=== PATIENT | male | born 1955 | race Hispanic/Latino ===

== ENCOUNTER 2016-08-19 04:33 | Inpatient (IN) | payer MEDICARE, OTHER ==
[2016-08-19] MEDS ORDERED: Sodium Chloride 0.9% 1,000 ML IV STA ×4 (04:48→13:40)
--- NOTE | 2016-08-19 04:50 | ED PDOC ---
Arrival/HPI <Randy Mckeon - Last Filed: 08/19/16 11:48> - General Historian: Patient - History of Present Illness Time/Duration: Other (few hours) Symptom Onset: Gradual Symptom Course: Unchanged Severity Level: Severe Activities at Onset: Rest Context: Home <Teja Camilo - Last Filed: 08/20/16 06:21> - General Time Seen by Provider: 08/19/16 04:35 - History of Present Illness Narrative History of Present Illness (Text): 08/19/16 04:45 Kar Ramírez is a 60 year old male, whose past medical history includes SBO with bowel ischemia, CAD, CHF, hypertension, asthma, COPD, diabetes, hyperlipidemia, and obstructive sleep apnea, who presents to the ED complaining of diffuse abdominal pain for the past few hours. Patient also complaining of associated nausea, vomiting, and diarrhea. Patient was recent hospitalized on 07/26/2016 for SBO with ischemic bowel and underwent an emergency laparotomy and right hemicolectomy with anastomosis. Patient denies any fever, chills, chest pain, shortness of breath, urinary symptoms, back pain, neck pain, headache, dizziness , or any other complaints. PMD: Dr. Mikki Mccormack (Teja Camilo) Past Medical History - Provider Review Nursing Documentation Reviewed: Yes - Infectious Disease Hx of Infectious Diseases: None - Tetanus Immunization Tetanus Immunization: Unknown - Cardiac Hx Cardiac Disorders: Yes (CAD; Mitral Valve Prolapse) Hx Congestive Heart Failure: Yes Hx Hypertension: Yes - Pulmonary Hx Chronic Obstructive Pulmonary Disease (COPD): Yes (Asthma; Bronchitis; Sleep Apnea) - Neurological Hx Neurological Disorder: No (Pt states he is forgetful) - HEENT Hx HEENT Disorder: No - Renal Hx Renal Disorder: No Other/Comment: Pt stated he takes Lisinopril for his kidneys; Pt stated he has no kidney problems. - Endocrine/Metabolic Hx Diabetes Mellitus Type 2: Yes - Hematological/Oncological Hx Blood Disorders: No - Integumentary Hx Dermatological Disorder: No - Musculoskeletal/Rheumatological Hx Falls: Yes - Gastrointestinal Hx Gastrointestinal Disorders: No - Genitourinary/Gynecological Hx Genitourinary Disorders: No - Psychiatric Hx Psychophysiologic Disorder: Yes Hx Anxiety: Yes Hx Bipolar Disorder: Yes Hx Depression: Yes Hx Physical Abuse: No Hx Schizophrenia: Yes (schizoaffective disorder) Hx Substance Use: No Other/Comment: SCHIZOAFFECTIVE DISORDER - Surgical History Hx Valve Replacement: Yes - Anesthesia Hx Anesthesia: No - Suicidal Assessment Feels Threatened In Home Enviroment: No <TonTeja - Last Filed: 08/20/16 06:21> Family/Social History - Physician Review Nursing Documentation Reviewed: Yes Family/Social History: No Known Family HX Smoking Status: Heavy Smoker > 10 Cigarettes Daily Hx Alcohol Use: No Hx Substance Use: No Hx Substance Use Treatment: No <TonTeja - Last Filed: 08/20/16 06:21> Allergies/Home Meds <Randy Mckeon Josefina - Last Filed: 08/19/16 11:48> <TonTeja - Last Filed: 08/20/16 06:21> Allergies/Adverse Reactions: Allergies haloperidol [From Haldol] Allergy (Verified 08/19/16 04:45) ANAPHYLAXIS haloperidol lactate [From Haldol] Allergy (Verified 08/19/16 04:45) ANAPHYLAXIS oxycodone Allergy (Verified 08/19/16 04:45) VOMITING Home Medications: Home Meds Medication Instructions Recorded Confirmed Buspar 15 mg PO QID 10/11/15 07/31/16 buPROPion SR [Wellbutrin SR 150 MG] 150 mg PO DAILY 10/11/15 07/31/16 Metoprolol Tartrate [Lopressor] 25 mg PO BID 10/28/15 07/31/16 Lorazepam [Ativan] 0.5 mg PO BID 07/31/16 07/31/16 Temazepam [Restoril] 15 mg PO HS 07/31/16 07/31/16 Review of Systems - Review of Systems Constitutional: Normal. absent: Fevers Eyes: Normal ENT: Normal Respiratory: Normal. absent: SOB, Cough Cardiovascular: Normal. absent: Chest Pain Gastrointestinal: Abdominal Pain, Diarrhea, Nausea, Vomiting Genitourinary Male: Normal. absent: Dysuria, Frequency, Hematuria, Urinary Output Changes Musculoskeletal: Normal. absent: Back Pain Skin: Normal. absent: Rash Neurological: Normal. absent: Headache, Dizziness Endocrine: Normal Hemo/Lymphatic: Normal Psychiatric: Normal <TonTeja - Last Filed: 08/20/16 06:21> Physical Exam Vital Signs Reviewed: Yes Temperature: Afebrile Blood Pressure: Normal Pulse: Regular Respiratory Rate: Normal Appearance: Positive for: Well-Appearing, Non-Toxic, Comfortable Pain Distress: None Mental Status: Positive for: Alert and Oriented X 3 - Systems Exam Head: Present: Atraumatic, Normocephalic Pupils: Present: PERRL Extroacular Muscles: Present: EOMI Conjunctiva: Present: Normal Mouth: Present: Moist Mucous Membranes Neck: Present: Normal Range of Motion Respiratory/Chest: Present: Clear to Auscultation, Good Air Exchange. No: Respiratory Distress, Accessory Muscle Use Cardiovascular: Present: Regular Rate and Rhythm, Normal S1, S2. No: Murmurs Abdomen: Present: Tenderness (Mild tenderness to lower abdomen), Normal Bowel Sounds, Scars (Sutured midline surgical scar with small 1.0 cm superficial skin separation to suture line). No: Distention, Peritoneal Signs Back: Present: Normal Inspection Upper Extremity: Present: Normal Inspection. No: Cyanosis, Edema Lower Extremity: Present: Normal Inspection. No: Edema Neurological: Present: GCS=15, CN II-XII Intact, Speech Normal, Motor Func Grossly Intact, Normal Sensory Function Skin: Present: Warm, Dry, Normal Color. No: Rashes Psychiatric: Present: Alert, Oriented x 3, Normal Insight, Normal Concentration <Teja Camilo - Last Filed: 08/20/16 06:21> Vital Signs Temp Pulse Resp BP Pulse Ox 08/19/16 09:31 98 F 78 18 138/78 98 08/19/16 08:00 66 18 149/85 99 08/19/16 06:43 75 18 139/82 100 08/19/16 04:46 97.6 F 89 18 133/47 L 100 08/19/16 04:45 97.6 F 82 21 133/47 L 100 Medical Decision Making <Randy Mckeon - Last Filed: 08/19/16 11:48> - Critical Care Critical Care Minutes: 30 minutes - Lab Interpretations I have reviewed the lab results: Yes - EKG Interpretation Interpreted by ED Physician: Yes Type: 12 lead EKG <Teja Camilo - Last Filed: 08/20/16 06:21> ED Course and Treatment: 08/19/16 10:30 - Dr. Joy, Radiologist gave me a prelim report on the CT findings. I reported them immediately to Dr. Satnam Hirsch. Patient was already admitted and I had no involvement in this case. (Randy Mckeon) 08/19/16 04:45 Impression: 60 year old male complaining of diffuse abdominal pain with nausea, vomiting, and diarrhea for past few hours. Plan: -- Labs, lipase, VBG, blood cultures -- Urinalysis, urine cultures -- IV fluids -- Zofran -- Dilaudid -- Reassess and disposition Prior Visits: Notes and results from previous visits were reviewed. On 07/26/2016, pt was seen in the ED for RLQ pain with nausea and vomiting. Pt was admitted to CCU and underwent an emergent exploratory laparotomy and right hemicolectomy and anastomosis for SBO with ischemic bowel. Progress Notes: 08/19/16 05:[address] Hidalgo, salesperson surgical appliances, to ED to evaluate pt. Dr. Hidalgo is familiar with pt, as he assisted Dr. Hirsch on previous surgery. 08/19/16 05:35 Reviewed labs, lactate: 3.9, WBC: 19.4. Code Sepsis called. CT Abdomen and Pelvis, EKG, Chest X-ray, Urinalysis, urine cultures, and blood cultures to follow. 08/19/16 06:04 Case discussed in full with Dr. Ronel Hirsch including abnormal lab results, pts. condition and my concern given recent past surgical hx. for ischemic bowel/ hemicolectomy performed by him.Ct Scan Abdomen/Pelvis with oral/IV contrast requested.States he will come and evaluate pt.IV fluids/antibiotics were administered to patient. 08/19/16 06:[address] Hutchinson, forming department supervisor, who is aware and agrees with plan.Pt.does not meet criteria for ICU at this time as pt. is hemodynamically stable with continued normal vital signs.Serial abdominal exams unremarkable/no acute abdomen. CT scan pending. 08/19/16 06:10 Reviewed EKG, NSR at 84 bpm. Occasional PVC. RBBB. Lateral T wave changes. 08/19/16 06:[address] Mccormack, who is aware and agrees with plan.Agrees Dr. Garcia and Dr. Hirsch on consult. (Teja Camilo) - Lab Interpretations Microbiology Results: Microbiology Results 08/19/16 05:15 Blood Blood Culture - Preliminary NO GROWTH AFTER 24 HOURS 08/19/16 05:00 Blood Blood Culture - Preliminary NO GROWTH AFTER 24 HOURS Lab Results: 08/19/16 05:00 08/19/16 05:00 Lab Results 08/19/16 05:00: WBC 19.4 H D, RBC 3.25 L, Hgb 10.9 L, Hct 30.4 L, MCV 93.5, MCH 33.5, MCHC 35.9, RDW 13.2, Plt Count 309, MPV 10.3, PT 11.8, INR 1.09 H, APTT 28.3, pO2 54, VBG pH 7.43, VBG pCO2 44.0, VBG HCO3 29.2 H, VBG Total CO2 30.6 H , VBG O2 Sat (Calc) 90.4 H, VBG Base Excess 4.2 H, VBG Potassium 3.8, Glucose 358 H, Lactate 3.9 H, FiO2 21.0, Sodium 130.0 L, Potassium 3.6, Chloride 90.0 L , Carbon Dioxide 27, Anion Gap 19, BUN 41 H, Creatinine 1.7 H, Est GFR ( Amer) 50, Est GFR (Non-Af Amer) 41, Random Glucose 335 H* D, Calcium 8.8, Total Bilirubin 0.7, AST 24, ALT 19, Alkaline Phosphatase 82, Total Protein 6.4, Albumin 3.2, Globulin 3.1, Albumin/Globulin Ratio 1.0 L, Lipase 22 L, Venous Blood Potassium 3.8 - RAD Interpretation Radiology Orders: 08/19/16 05:36 CHEST PORTABLE [RAD] Stat 08/19/16 06:34 ABD & PELVIS PO CONTRAST ONLY [CT] Stat - Medication Orders Current Medication Orders: Discontinued Medications Bupropion HCl (Wellbutrin Sr 150 Mg) 150 mg PO DAILY [facility] Buspirone HCl (Buspar) 15 mg PO QID [facility] Clopidogrel Bisulfate (Plavix) 75 mg PO DAILY [facility] Fentanyl (Fentanyl) 100 mcg IVP Q2 PRN PRN Reason: pain>8 Last Admin: 08/19/16 14:58 Dose: 100 MCG [facility] Pain Assessment Document 08/19/16 14:58 CLA (Rec: 08/19/16 14:[address]) Pain Reassessment Is this a pain reassessment? Yes Sleep Is patient sleeping during reassessment? Yes IVP Administration Document 08/19/16 14:58 CLA (Rec: 08/19/16 14:[address]) Charges for Administration # of IVP Administrations 1 Furosemide (Lasix) 40 mg IVP DAILY MYRIAM Home Med (Home Med) 1 unit PO HS MYRIAM Hydrocortisone Sodium Succinate (Solu-Cortef) 100 mg IVP Q8 MYRIAM Last Admin: 08/19/16 20:08 Dose: 100 MG IVP Administration Document 08/19/16 20:08 MHA (Rec: 08/19/16 20:[address]) Charges for Administration # of IVP Administrations 1 Hydromorphone HCl (Dilaudid) 1 mg IVP STAT STA Stop: 08/19/16 04:54 Last Admin: 08/19/16 05:09 Dose: 1 MG IVP Administration Document 08/19/16 05:09 GMD (Rec: 08/19/16 05:09 GMD [id number]) Charges for Administration # of IVP Administrations 1 Hydromorphone HCl (Dilaudid) 1 mg IVP STAT STA Stop: 08/19/16 07:28 Last Admin: 08/19/16 07:46 Dose: 1 MG IVP Administration Document 08/19/16 07:46 EWO (Rec: 08/19/16 07:46 EWO [id number]) Charges for Administration # of IVP Administrations 2 Hydromorphone HCl (Dilaudid) 1 mg IVP Q4H PRN PRN Reason: Pain, moderate (4-7) Last Admin: 08/19/16 10:44 Dose: 1 MG MAR Pain Assessment Document 08/19/16 10:44 [id number] (Rec: 08/19/16 10:45 [id number] [facility]-[id number]) Pain Reassessment Is this a pain reassessment? No Sleep Is patient sleeping during reassessment? No Presence of Pain Presence of Pain Yes Pain Scale Used Pain Scale Used Numeric Location Pain Location Body Site Abdomen Description Description Constant Intensity of Pain at present 10 Pain Behavior Moaning Restlessness Aggravating Factors None Alleviating Factors/Management Medication Techniques Alleviating Factors Medication IVP Administration Document 08/19/16 10:44 [id number] (Rec: 08/19/16 10:45 [id number] [facility]-[id number]) Charges for Administration # of IVP Administrations 1 Sodium Chloride (Sodium Chloride 0.9%) 1,000 mls @ 999 mls/hr IV .Q1H1M STA Stop: 08/19/16 05:48 Last Admin: 08/19/16 05:01 Dose: 999 MLS/HR eMAR Start Stop Document 08/19/16 05:01 GMD (Rec: 08/19/16 05:01 GMD [id number]) Intravenous Solution Start Date 08/19/16 Start Time 05:01 End Date 08/19/16 End time 06:02 Total Infusion Time 61 Meropenem 1g/NS 100mL IVPB (Meropenem 1g/Ns 100ml Ivpb) 100 mls @ 100 mls/hr IVPB STAT STA PRN Reason: Protocol Stop: 08/19/16 06:32 Last Admin: 08/19/16 06:03 Dose: 100 MLS/HR eMAR Start Stop Document 08/19/16 06:03 GMD (Rec: 08/19/16 06:03 GMD [id number]) Intravenous Solution Start Date 08/19/16 Start Time 06:03 End Date 08/19/16 End time 07:03 Total Infusion Time 60 Vancomycin HCl (Vancomycin 1gm) 250 mls @ 167 mls/hr IVPB STAT STA PRN Reason: Protocol Stop: 08/19/16 07:09 Last Admin: 08/19/16 06:39 Dose: 167 MLS/HR eMAR Start Stop Document 08/19/16 06:39 GMD (Rec: 08/19/16 06:39 GMD [id number]) Intravenous Solution Start Date 08/19/16 Start Time 06:39 End Date 08/19/16 End time 08:09 Total Infusion Time 90 Sodium Chloride (Sodium Chloride 0.9%) 1,000 mls @ 999 mls/hr IV .Q1H1M STA Stop: 08/19/16 06:59 Last Admin: 08/19/16 06:22 Dose: 999 MLS/HR eMAR Start Stop Document 08/19/16 06:22 GMD (Rec: 08/19/16 06:22 GMD [id number]) Intravenous Solution Start Date 08/19/16 Start Time 06:22 End Date 08/19/16 End time 07:23 Total Infusion Time 61 Sodium Chloride (Sodium Chloride 0.9%) 1,000 mls @ 999 mls/hr IV .Q1H1M STA Stop: 08/19/16 07:34 Last Admin: 08/19/16 07:46 Dose: 999 MLS/HR eMAR Start Stop Document 08/19/16 07:46 EWO (Rec: 08/19/16 07:46 EWO [id number]) Intravenous Solution Start Date 08/19/16 Start Time 07:00 End Date 08/19/16 End time 08:00 Total Infusion Time 60 Sodium Chloride (Sodium Chloride 0.9%) 1,000 mls @ 100 mls/hr IV .Q10H MYRIAM Last Admin: 08/19/16 09:01 Dose: 100 MLS/HR eMAR Start Stop Document 08/19/16 09:01 EWO (Rec: 08/19/16 09:02 EWO [id number]) Intravenous Solution Start Date 08/19/16 Start Time 09:02 Ceftriaxone Sodium (Rocephin 1 Gram Ivpb) 100 mls @ 100 mls/hr IVPB DAILY MYRIAM PRN Reason: Protocol Last Admin: 08/19/16 10:43 Dose: 100 MLS/HR eMAR Start Stop Document 08/19/16 10:43 [id number] (Rec: 08/19/16 10:44 [email or web address] [facility]-[id number]) Intravenous Solution Start Date 08/19/16 Start Time 10:43 End Date 08/19/16 Dopamine HCl/Dextrose (Dopamine 400mg/250ml D5w) 250 mls @ 6.804 mls/hr IV .Q24H PRN; Protocol; 2 MCG/KG/MIN PRN Reason: TITRATE PER MD ORDER Meropenem 1g/NS 100mL IVPB (Meropenem 1g/Ns 100ml Ivpb) 100 mls @ 100 mls/hr IVPB Q12 MYRIAM PRN Reason: Protocol Stop: 08/20/16 12:01 Last Admin: 08/19/16 21:13 Dose: 100 MLS/HR eMAR Start Stop Document 08/19/16 21:13 MHA (Rec: 08/19/16 21:14 MHA [facility]-[id number]) Intravenous Solution Start Date 08/19/16 Start Time 21:14 End Date 08/19/16 End time 22:14 Total Infusion Time 60 Micafungin Sodium 100 mg/ (Sodium Chloride) 100 mls @ 100 mls/hr IV DAILY MYRIAM PRN Reason: Protocol Stop: 09/02/16 14:01 Last Admin: 08/19/16 13:43 Dose: 100 MLS/HR eMAR Start Stop Document 08/19/16 13:43 CLA (Rec: 08/19/16 13:43 CLA [facility] Intravenous Solution Start Date 08/19/16 Start Time 13:43 End Date 08/19/16 End time 14:44 Total Infusion Time 61 Vancomycin HCl (Vancomycin 500mg In Ns) 100 mls @ 200 mls/hr IVPB STAT STA PRN Reason: Protocol Stop: 08/19/16 13:17 Last Admin: 08/19/16 13:43 Dose: 200 MLS/HR eMAR Start Stop Document 08/19/16 13:43 CLA (Rec: 08/19/16 13:44 CLA [id number] [place] Intravenous Solution Start Date 08/19/16 Start Time 13:43 End Date 08/19/16 End time 14:44 Total Infusion Time 61 Metronidazole (Flagyl) 100 mls @ 100 mls/hr IVPB Q8 MYRIAM PRN Reason: Protocol Stop: 09/02/16 14:01 Last Admin: 08/19/16 21:13 Dose: 100 MLS/HR eMAR Start Stop Document 08/19/16 21:13 MHA (Rec: 08/19/16 21:13 MHA [id number]) Intravenous Solution Start Date 08/19/16 Start Time 21:13 End Date 08/19/16 End time 22:13 Total Infusion Time 60 Epinephrine HCl 1 mg/ Sodium (Chloride) 51 mls @ 3.06 mls/hr IV .[id number] PRN; Protocol; 1 MCG/MIN PRN Reason: TITRATE PER MD ORDER Last Admin: 08/19/16 13:45 Dose: 3.06 MLS/HR Titration Intervention Document 08/19/16 13:45 CLA (Rec: 08/19/16 13:45 CLA [facility]-[id number]) Titration Intake Container Volume 51 Titration Dosing Titration Dose 1 IV Rate 3.06 Intake/Decrease Start eMAR Start Stop Document 08/19/16 13:45 CLA (Rec: 08/19/16 13:45 CLA [facility]-[id number]) Intravenous Solution Start Date 08/19/16 Start Time 13:45 Dexmedetomidine HCl (Precedex 4 Mcg/Ml (100 Ml)) 100 mls @ 4.536 mls/hr IV .Q22H3M PRN; Protocol; 0.2 MCG/KG/HR PRN Reason: Agitation Last Titration: 08/19/16 14:52 Dose: MCG/KG/HR Frost Agitation Sedation Document 08/19/16 14:52 CLA (Rec: 08/19/16 14:52 CLA [facility]-[id number]) Frost Agitation Sedation Scale Frost Agitation Sedation Scale Score -5 Unarousable: No response to voice or physical stimulation Titration Intervention Document 08/19/16 14:52 CLA (Rec: 08/19/16 14:52 CLA [facility]-[id number]) Titration Dosing Titration Dose 0.4 IV Rate 9.072 Intake/Decrease Increase Sodium Chloride (Sodium Chloride 0.9%) 1,000 mls @ 999 mls/hr IV .Q1H1M STA Stop: 08/19/16 14:40 Last Admin: 08/19/16 13:45 Dose: 999 MLS/HR eMAR Start Stop Document 08/19/16 13:45 CLA (Rec: 08/19/16 13:45 CLA [facility]-[id number]) Intravenous Solution Start Date 08/19/16 Start Time 13:45 End Date 08/19/16 End time 14:45 Total Infusion Time 60 Norepinephrine Bitartrate 4 mg (/ Dextrose) 254 mls @ 57.15 mls/hr IV .Q4H27M PRN; Protocol; 15 MCG/MIN PRN Reason: TITRATE PER MD ORDER Last Admin: 08/19/16 18:17 Dose: 152.4 MLS/HR Titration Intervention Document 08/19/16 18:17 CLA (Rec: 08/19/16 18:17 CLA [facility]-[id number]) Titration Intake Container Volume 254 Titration Dosing Titration Dose 40 IV Rate 152.4 Intake/Decrease Running eMAR Start Stop Document 08/19/16 18:17 CLA (Rec: 08/19/16 18:17 CLA [facility]-[id number]) Intravenous Solution Start Date 08/19/16 Start Time 18:17 Sodium Bicarbonate 100 meq/ (Sodium Chloride) 1,100 mls @ 150 mls/hr IV .Q7H20M MYRIAM Last Admin: 08/19/16 21:50 Dose: 150 MLS/HR eMAR Start Stop Document 08/19/16 21:50 MHA (Rec: 08/19/16 21:[address]) Intravenous Solution Start Date 08/19/16 Start Time 21:50 End Date 08/20/16 End time 04:20 Total Infusion Time 390 Fentanyl Citrate (Fentanyl Citrate/Sodium Chloride 1 Mg/100 Ml) 100 mls @ 10 mls/hr IV .Q10H PRN; Protocol; 100 MCG/HR PRN Reason: TITRATE PER MD ORDER Last Titration: 08/19/16 18:50 Dose: 125 MCG/HR Titration Intervention Document 08/19/16 18:50 CLA (Rec: 08/19/16 18:[address]) Titration Dosing Titration Dose 125 IV Rate 12.5 Intake/Decrease Decrease Levetiracetam 1,000 mg/ Sodium (Chloride) 110 mls @ 460 mls/hr IV STAT STA Stop: 08/19/16 18:20 Last Admin: 08/19/16 18:36 Dose: 460 MLS/HR eMAR Start Stop Document 08/19/16 18:36 CLA (Rec: 08/19/16 18:[address]) Intravenous Solution Start Date 08/19/16 Start Time 18:36 End Date 08/19/16 End time 19:00 Total Infusion Time 24 Levetiracetam 500 mg/ Sodium (Chloride) 105 mls @ 460 mls/hr IV Q12 MYRIAM Last Admin: 08/19/16 21:51 Dose: 460 MLS/HR eMAR Start Stop Document 08/19/16 21:51 MHA (Rec: 08/19/16 21:[address]) Intravenous Solution Start Date 08/19/16 Start Time 21:51 End Date 08/19/16 End time 23:04 Total Infusion Time 73 Norepinephrine Bitartrate 8 mg (/ Sodium Chloride) 258 mls @ 77.4 mls/hr IV .Q3H20M PRN; Protocol; 40 MCG/MIN PRN Reason: TITRATE PER MD ORDER Last Admin: 08/19/16 20:30 Dose: 77.4 MLS/HR Titration Intervention Document 08/19/16 20:30 MHA (Rec: 08/19/16 21:[address]) Titration Intake Container Volume 258 Titration Dosing Titration Dose 40 IV Rate 77.4 Intake/Decrease Start eMAR Start Stop Document 08/19/16 20:30 MHA (Rec: 08/19/16 21:[address]) Intravenous Solution Start Date 08/19/16 Start Time 20:30 Vasopressin 20 units/ Sodium (Chloride) 101 mls @ 9.09 mls/hr IV .Q11H7M MYRIAM; 0.03 U/MIN PRN Reason: Protocol Last Admin: 08/19/16 20:50 Dose: 9.09 MLS/HR MAR Vitals Document 08/19/16 20:50 MHA (Rec: 08/19/16 21:[address]) Measurements Blood Pressure (100/60-150/90) 70/36 Pulse Rate (60-90) 106 eMAR Start Stop Document 08/19/16 20:50 MHA (Rec: 08/19/16 21:[address]) Intravenous Solution Start Date 08/19/16 Start Time 20:50 Insulin Human Regular (Humulin R High) 0 units SC ACHS MYRIAM PRN Reason: Protocol Last Admin: 08/19/16 21:59 Dose: Not Given Non-Admin Reason: Blood Sugar Parameter MAR Blood Glucose Document 08/19/16 21:59 MHA (Rec: 08/19/16 21:[address]) Blood Glucose Finger Stick Blood Glucose (70-120) 178 Iohexol (Omnipaque 240 (50 Ml)) Confirm Administered Dose 50 ml .ROUTE .STK-MED ONE Stop: 08/19/16 06:23 Lorazepam (Ativan) 0.5 mg PO BID MYRIAM PRN Reason: Protocol Lorazepam (Ativan) 2 mg IVP ONCE STA PRN Reason: Protocol Stop: 08/19/16 19:14 Last Admin: 08/19/16 19:19 Dose: 2 MG Behavioural Document 08/19/16 19:19 CLA (Rec: 08/19/16 19:19 CLA [id number]) Maintenance Maintenance Dose Yes Nonmedicinal Nonmedicinal Interventions Redirect IVP Administration Document 08/19/16 19:19 CLA (Rec: 08/19/16 19:19 [id number] Charges for Administration # of IVP Administrations 1 Re-Assess: Reassess Psych Meds Document 08/19/16 19:49 MHA (Rec: 08/19/16 21:[address]) Reassess Psych Med Ineffective-LIP notifed Lorazepam (Ativan) 2 mg IVP ONCE STA PRN Reason: Protocol Stop: 08/19/16 21:10 Last Admin: 08/19/16 21:10 Dose: 2 MG Behavioural Document 08/19/16 21:10 MHA (Rec: 08/19/16 21:[address]) Behavior Behavior Comment seizure IVP Administration Document 08/19/16 21:10 MHA (Rec: 08/19/16 21:[address]) Charges for Administration # of IVP Administrations 1 Re-Assess: Reassess Psych Meds Document 08/19/16 21:40 MHA (Rec: 08/19/16 22:[address]) Reassess Psych Med Effective Lorazepam (Ativan) 2 mg IVP Q1H PRN; Protocol PRN Reason: Seizure activity Metoprolol Tartrate (Lopressor) 25 mg PO BID MYRIAM Norepinephrine Bitartrate (Levophed) Confirm Administered Dose 4 mg IV .STK-MED ONE Stop: 08/19/16 12:32 Last Admin: 08/19/16 12:35 Dose: 4 MG eMAR Start Stop Document 08/19/16 12:35 CLA (Rec: 08/19/16 14:[address]) Intravenous Solution Start Date 08/19/16 Start Time 12:35 Norepinephrine Bitartrate (Levophed) Confirm Administered Dose 4 mg IV .STK-MED ONE Stop: 08/19/16 14:38 Last Admin: 08/19/16 14:58 Dose: 4 MG eMAR Start Stop Document 08/19/16 14:58 CLA (Rec: 08/19/16 14:[address]) Intravenous Solution Start Date 08/19/16 Start Time 14:58 Norepinephrine Bitartrate (Levophed) Confirm Administered Dose 8 mg IV .STK-MED ONE Stop: 08/19/16 20:04 Olanzapine (Zyprexa) 20 mg PO HS MYRIAM Ondansetron HCl (Zofran Inj) 4 mg IVP ONCE ONE Stop: 08/19/16 04:52 Last Admin: 08/19/16 05:08 Dose: 4 MG IVP Administration Document 08/19/16 05:08 GMD (Rec: 08/19/16 05:09 GMD [id number]) Charges for Administration # of IVP Administrations 1 Ondansetron HCl (Zofran Inj) 4 mg IVP Q6H PRN PRN Reason: Nausea/Vomiting Last Admin: 08/19/16 10:44 Dose: 4 MG IVP Administration Document 08/19/16 10:44 [id number] (Rec: 08/19/16 10:44 [id number] [facility]-[id number]) Charges for Administration # of IVP Administrations 1 Risperidone (Risperdal Tab) 2 mg PO BID MYRIAM PRN Reason: Protocol Sodium Bicarbonate (Sodium Bicarbonate (8.4%) 50 Meq Syringe) Confirm Administered Dose 100 meq .ROUTE .STK-MED ONE Stop: 08/19/16 13:13 Last Admin: 08/19/16 13:15 Dose: 100 MEQ Vancomycin HCl (Vancocin 25 Mg/Ml (Oral Use)) 500 mg PO QID MYRIAM PRN Reason: Protocol Stop: 09/02/16 14:01 Last Admin: 08/19/16 22:00 Dose: Not Given Non-Admin Reason: NPO <Randy Mckeon - Last Filed: 08/19/16 11:48> - Scribe Statement The provider has reviewed the documentation as recorded by the Scribe <Teja Camilo - Last Filed: 08/20/16 06:21> - Scribe Statement Aurea Gaffney (Teja Camilo) Provider Attestation: All medical record entries made by the Scribe were at my direction and personally dictated by me. I have reviewed the chart and agree that the record accurately reflects my personal performance of the history, physical exam, medical decision making, and the department course for this patient. I have also personally directed, reviewed, and agree with the discharge instructions and disposition. (Teja Camilo) Disposition/Present on Arrival - Present on Arrival Any Indicators Present on Arrival: No - Disposition Have Diagnosis and Disposition been Completed?: Yes Disposition Time: 07:29 Patient Plan: Admission <Roger Mckeonmaureen Rocha - Last Filed: 08/19/16 11:48> - Present on Arrival Any Indicators Present on Arrival: No History of DVT/PE: No History of Uncontrolled Diabetes: No Urinary Catheter: No History of Decub. Ulcer: No History Surgical Site Infection Following: None - Disposition Have Diagnosis and Disposition been Completed?: Yes Disposition Time: 07:29 Patient Plan: Admission <Teja Camilo - Last Filed: 08/20/16 06:21> - Disposition Diagnosis: Abdominal pain, Sepsis Disposition: HOSPITALIZED Patient Problems: Current Active Problems Problem Status Diagnosed Congestive heart failure (CHF) Acute Condition: GUARDED
[2016-08-19] MEDS ORDERED: HYDROmorphone 1 mg/ml ISec IVP STA ×2 (04:53→07:27)
[2016-08-19 05:09] LABS: VENOUS BLOOD GAS BASE EXCESS 4.2 mmol/L (0.0-2.0); VENOUS BLOOD PH 7.43 (7.32-7.43)
[2016-08-19 05:19] LABS: BILIRUBIN,TOTAL 0.7 mg/dL (0.2-1.3); CALCIUM 8.8 mg/dL (8.4-10.5); POTASSIUM 3.6 mmol/L (3.6-5.0); TOTAL PROTEIN 6.4 g/dL (5.8-8.3)
[2016-08-19 05:24] LABS: HEMATOCRIT 30.4 % (42.0-52.0); MEAN CELL VOLUME 93.5 fL (80.0-105.0); MEAN CORPUSCULAR HEMOGLOBIN 33.5 pg (25.0-35.0); MEAN CORPUSCULAR HGB CONC 35.9 g/dl (31.0-37.0); MEAN PLATELET VOLUME 10.3 fl (7.0-11.0); RED CELL DISTRIBUTION WIDTH 13.2 % (11.5-14.5); WHITE BLOOD COUNT 19.4 10^3/ul (4.5-11.0)
[2016-08-19 05:27] LABS: INR 1.09 (0.93-1.08); PARTIAL THROMBOPLASTIN TIME 28.3 Seconds (23.7-30.8)
[2016-08-19] MEDS ORDERED: Meropenem 1g/NS 100mL IVPB 100 ML IVPB STA (05:33)
[2016-08-19] MEDS ORDERED: Vancomycin 1gm in NS 250ml 250 ML IVPB STA (05:40)
[2016-08-19] MEDS ORDERED: Iohexol 240 (50 ml) ONE (06:22)
[2016-08-19] MEDS ORDERED: Sodium Chloride 0.9% 1,000 ML IV SCH (08:15)
[2016-08-19 08:32] LABS: VENOUS BLOOD GAS BASE EXCESS 0.7 mmol/L (0.0-2.0); VENOUS BLOOD PH 7.32 (7.32-7.43)
[2016-08-19 08:47] LABS: TROPONIN I 0.06 ng/mL
[2016-08-19 09:36] LABS: URINE BILIRUBIN NEGATIVE (NEGATIVE); URINE BLOOD NEGATIVE (NEGATIVE); URINE GLUCOSE (UA) 100 mg/dL (NEGATIVE); URINE KETONE NEGATIVE (NEGATIVE); URINE LEUKOCYTE ESTERASE NEGATIVE Leu/uL (NEGATIVE); URINE PROTEIN NEGATIVE mg/dL (<30 mg/dL); URINE UROBILINOGEN 0.2 E.U./dL (<1 E.U./dL)
[2016-08-19 09:37] LABS: URINE APPEARANCE CLEAR (CLEAR); URINE COLOR YELLOW (YELLOW)
[2016-08-19] MEDS ORDERED: HYDROmorphone 1 mg/ml ISec IVP PRN (10:07)
[2016-08-19] MEDS ORDERED: cefTRIAXone 1 gm 100 ML IVPB SCH (10:30)
--- NOTE | 2016-08-19 10:40 | CP.PCM.PCO ---
Physician Communication Note - Physician Communication Note Physician Communication Note: Dx Total bowelischemia:Air in portal vein/ Prognosis Grave!
--- NOTE | 2016-08-19 10:57 | CT ---
PROCEDURE: CT Abdomen and Pelvis with contrast HISTORY: Abdominal pain COMPARISON: None. TECHNIQUE: CT scan of the abdomen and pelvis was performed after administration of oral contrast. Intravenous contrast was not administered. Coronal and sagittal reformatted images were obtained. Radiation dose: Total exam DLP = 1200.96 mGy-cm. FINDINGS: LOWER THORAX: There is a small right and trace left pleural effusion. There is compressive atelectasis in both lower lobes. LIVER: The liver is normal in size. There is interval increase in the amount of portal venous air present diffusely through both lobes and extending peripherally. GALLBLADDER AND BILE DUCTS: There are no calcified gallstones. PANCREAS: No focal lesion or ductal dilatation. SPLEEN: The spleen is normal in size. ADRENALS: Both adrenal glands are normal without discrete nodule. KIDNEYS AND URETERS: Both kidneys are normal in size and there are stable simple cysts in the left kidney. VASCULATURE: There are advanced atherosclerotic aortoiliac calcifications. No aortic aneurysm. BOWEL: The stomach is markedly distended and there is probable air within the stomach wall. There is marked dilatation of the small bowel measuring approximately a 6.1 cm in diameter. There is extensive pneumatosis intestinalis. There has been interval right hemicolectomy with multiple sutures in the transverse colon. There is no definite evidence of pneumatosis coli. PERITONEUM: No free air or free fluid. LYMPH NODES: No enlarged lymph nodes. BLADDER: Unremarkable. REPRODUCTIVE: Unremarkable. BONES: No acute fracture. Multilevel degenerative changes. OTHER FINDINGS: None. IMPRESSION: Interval development of marked pneumatosis intestinalis with dilatation of the small bowel loops and presumable gastric emphysema. Interval progression of gas in the portal venous branches. Important findings were discussed with on 08/19/2016 at 10:30 a.m.
--- NOTE | 2016-08-19 11:31 | RAD ---
HISTORY: Abdominal pain COMPARISON: 07/30/2016 FINDINGS: LUNGS: There is pulmonary hyperinflation and peribronchial thickening with chronic changes in both lungs. There is ill-defined airspace disease in the right lower lobe. PLEURA: No significant pleural effusion identified, no pneumothorax apparent. CARDIOVASCULAR: The heart is normal in size. Atherosclerotic aortic arch calcifications are present. There is a prosthetic aortic valve. OSSEOUS STRUCTURES: There is diffuse bone demineralization and old fracture deformities in the right posterior 5 th and 6th ribs. VISUALIZED UPPER ABDOMEN: Normal. OTHER FINDINGS: None. IMPRESSION: COPD. Suspect right lower lobe atelectasis/ pneumonia.
--- NOTE | 2016-08-19 11:33 | HP ---
SUBJECTIVE: I saw the patient resting in bed in [facility]. He was recently discharged after having abdominal pain. He is now back with abdominal pain, possible small-bowel obstruction. PAST MEDICAL HISTORY: This is a 60-year-old man who has a history which includes small-bowel obstruction with bowel ischemia status post colectomy. He also CAD, CHF, hypertension, asthma, COPD, diabetes, high cholesterol, obstructive sleep apnea, with diffuse abdominal pain, also vomiting and diarrhea. He is uncomfortable and is looking for pain medications. COPD, diabetes, falls, anxiety, depression, schizoaffective disorder, valve replacement, right hemicolectomy. FAMILY HISTORY: Hypertension in the family. SOCIAL HISTORY: Still a big time smoker, no alcohol, no drugs. ALLERGIES: HE HAS ALLERGIES TO HALDOL AND OXYCODONE. He is looking for Dilaudid for his abdominal pain. MEDICATIONS: He is on multiple medications. I put him back on his medications. REVIEW OF SYSTEMS: No acute vision changes or hearing changes, a lot of abdominal pain, no shortness of breath, no cough, no chest pain or pressure, no leg pains. He is having abdominal pain, diarrhea, nausea, vomiting. He is urinating okay. No back pain. No skin issues. No headache or dizziness. PHYSICAL EXAMINATION: VITAL SIGNS: He has a 97.6 temp, 89 pulse, 18 respiratory rate, 133/47 blood pressure, 100% O2 sat on oxygen. GENERAL: Head atraumatic, normocephalic. He is a little bit distressed. He is alert and oriented x 3, but uncomfortable. HEENT: Extraocular muscles are intact. Pupils equal and reactive to light and accommodation. Throat is dry. NECK: Supple. HEART: Regular rate. Normal S1, S2. LUNGS: Decreased breath sounds bilaterally, poor inspiration, but no wheezes, rhonchi or rales. ABDOMEN: Mildly distended, mildly tender. Lower abdomen, there is a scar there from the past surgery. No apparent guarding, no rebound, no CVA tenderness. EXTREMITIES: No edema. NEUROLOGIC: GCS is 15. Cranial nerves II-XII grossly intact. SKIN: Warm and dry. No palpable appreciative lymphadenopathy. Thyroid appears midline. LABORATORY DATA: He has a lot of tests. He has a 19.4 temp, he will be put on IV antibiotics. He is coming around being possibly septic. A 10.9 hemoglobin, 30.4 hematocrit with 309 platelets. INR is 1.09. He has a 127 sodium, he is on 0.9, normal saline now. BUN 41, creatinine 1.7, high. Sugars are , I will put him on coverage. Calcium is 8.8, total bili is 0.7, AST is 24, ALT is 19, alkaline phos is 82. Troponin was 0.06, indeterminate. BNP was 665, total protein 6.4. Urine was clean. We are pending EKG, chest x-ray, abdominal CAT scan. ASSESSMENT AND PLAN: He has consults with surgery and infectious disease. He had a dose of vancomycin. I put him on Rocephin. He is on IV fluids. I put him back on his regular psychiatric medications. We will also have Zofran for his nauseousness. I will keep him as comfortable as possible, await surgery and infectious disease. Hopefully, he will continue to improve. We will check his labs tomorrow. He is here for acute abdominal pain, apparent sepsis, renal insufficiency, diabetes, history of schizoaffective disorder. Bakari Mccormack DO cc: [id number] TT: 08/19/2016 11:33:11 jn MTDD
--- NOTE | 2016-08-19 12:02 | CP.PCM.PN ---
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 Patient was unresponsive, pulse unable to be palpated. No blood pressure. Patient and bedding covered with large amount of dark, bilious/coffee ground emesis. ACLS protocol initiated. VTach converted to PEA. Patient was without pulse for about 13 mins. ROSC achieved Patient was intubated during code: vocal cords visualized, Size 8.0 ETT used, 25cm at the lip. Position confirmed with color change on CO2 detector. Breath sounds heard bilaterally. Gen: Pale, dark bilious emesis. HEENT: Normocephalic, Atruamatic Cardiac: Heart sounds heard Pulm: Decreased breath sounds bilaterally. S/p intubation, breath sounds heard bilaterally Abd: Midline surgical scar, partially healed with scab. Neuro: unresponsive to painful stimuli Assessment: 60yo M with hx of extensive bowel ischemia. Cardiac arrest. ROSC after about 13 mins of pulseless electrical activity Plan: -Transfer to ICU -STAT labs -Will f/u CXR in order to confirm proper positioning -s/p intubation Attending Dr. Mccormack notified. Consults requested: Neuro- Jennifer Estevez Cardio - Rachel Hill Pulm - Marck De Leon -NG Tube to suction -Transfuse pRBCs -IVF -Central line access and Pressor support Discussed case with Wa[employer] Production Worker Dr. Chace Coleman. Patient accepted to ICU. Discussed case with Dr. Hirsch, Surgery. Patient has a history of severe small bowel ischemia. Cardiac hx is significant with an EF of around 20%. He is en route and will come to evaluate the patient within the next 40mins. Placed a call to Jeanette Rawls, sibling ([phone]). Unable to reach. I am not able to leave voicemail due to her voicemail not being set up. Objective - Vital Signs/Intake and Output Vital Signs (last 24 hours): Temp Pulse Resp BP Pulse Ox 98 F 78 18 138/78 98 08/19/16 09:31 08/19/16 09:31 08/19/16 09:31 08/19/16 09:31 08/19/16 09:31 - Medications Medications: Current Medications Bupropion HCl (Wellbutrin Sr 150 Mg) 150 mg PO DAILY [facility] Buspirone HCl (Buspar) 15 mg PO QID [facility] Clopidogrel Bisulfate (Plavix) 75 mg PO DAILY [facility] Furosemide (Lasix) 40 mg IVP DAILY [facility] Home Med (Home Med) 1 unit PO HS [facility] Hydromorphone HCl (Dilaudid) 1 mg IVP Q4H PRN PRN Reason: Pain, moderate (4-7) Last Admin: 08/19/16 10:44 Dose: 1 mg Sodium Chloride (Sodium Chloride 0.9%) 1,000 mls @ 100 mls/hr IV .Q10H [facility] Last Admin: 08/19/16 09:01 Dose: 100 mls/hr Ceftriaxone Sodium (Rocephin 1 Gram Ivpb) 100 mls @ 100 mls/hr IVPB DAILY [facility] PRN Reason: Protocol Last Admin: 08/19/16 10:43 Dose: 100 mls/hr Insulin Human Regular (Humulin R High) 0 units SC ACHS [facility] PRN Reason: Protocol Lorazepam (Ativan) 0.5 mg PO BID [facility] PRN Reason: Protocol Metoprolol Tartrate (Lopressor) 25 mg PO BID [facility] Olanzapine (Zyprexa) 20 mg PO HS [facility] Ondansetron HCl (Zofran Inj) 4 mg IVP Q6H PRN PRN Reason: Nausea/Vomiting Last Admin: 08/19/16 10:44 Dose: 4 mg Risperidone (Risperdal Tab) 2 mg PO BID [facility] PRN Reason: Protocol - Labs Labs: PT 11.8 Seconds (9.9-11.8) 08/19/16 05:00 INR 1.09 (0.93-1.08) H 08/19/16 05:00 APTT 28.3 Seconds (23.7-30.8) 08/19/16 05:00
[2016-08-19] MEDS ORDERED: DOPamine 400mg/250ml D5W 250 ML IV PRN (12:20)
[2016-08-19] MEDS ORDERED: Vancomycin 500mg in NS 100 ML IVPB STA (12:48)
[2016-08-19 12:55] LABS: VENOUS BLOOD GAS BASE EXCESS -18.1 mmol/L (0.0-2.0)
[2016-08-19 13:00] LABS: BASO # 0.01 K/mm3 (0.0-2.0); BASO % 0.1 % (0.0-3.0); EOS % 0.1 % (1.5-5.0); GRAN % 90.8 % (50.0-68.0); HEMATOCRIT 24.2 % (42.0-52.0); LYMPH # 0.9 (1.2-3.4); LYMPH % 6.4 % (22.0-35.0); MEAN CELL VOLUME 97.2 fL (80.0-105.0); MEAN CORPUSCULAR HEMOGLOBIN 32.9 pg (25.0-35.0); MEAN CORPUSCULAR HGB CONC 33.9 g/dl (31.0-37.0); MEAN PLATELET VOLUME 10.1 fl (7.0-11.0); MONO # 0.4 (0.1-0.6); MONO % 2.6 % (1.0-6.0); PLATELET COUNT 234 10^3/uL (120.0-450.0); RED CELL DISTRIBUTION WIDTH 13.3 % (11.5-14.5); WHITE BLOOD COUNT 14.6 10^3/ul (4.5-11.0)
[2016-08-19 13:06] LABS: BILIRUBIN,TOTAL 0.4 mg/dL (0.2-1.3); MAGNESIUM 1.2 mg/dL (1.7-2.2); TOTAL PROTEIN 4.2 g/dL (5.8-8.3)
[2016-08-19] MEDS ORDERED: EPINEPHrine- 1 MG in Sodium Chloride 0.9% 50 ML IV PRN (13:08)
[2016-08-19 13:09] LABS: CALCIUM 6.7 mg/dL (8.4-10.5)
[2016-08-19] MEDS ORDERED: Sodium Bicarbonate (8.4%) 50 Meq Syringe ONE (13:12)
[2016-08-19] MEDS: Vancomycin 25 MG/ML PO SCH ×3 (13:13→22:00)
[2016-08-19] MEDS ORDERED: Dexmedetomidine HCl 4mcg/ml 100 ML IV PRN (13:31)
[2016-08-19 13:32] LABS: TROPONIN I 0.11 ng/mL
--- NOTE | 2016-08-19 13:37 | CP.PCM.PN ---
<Angel Quiroz - Last Filed: 08/19/16 13:32> Subjective - Date & Time of Evaluation Date of Evaluation: 08/19/16 Time of Evaluation: 13:34 - Subjective Subjective: Implied consent. Patient requires pressors. Unable to obtain accurate pressure via non-invasive BP cuff. Arterial Line placed in left Axillary artery. Supervised by Dr. Nazia Coleman. No complications. Patient tolerated procedure well. Angel Quiroz PGY1 Objective - Vital Signs/Intake and Output Vital Signs (last 24 hours): Temp Pulse Resp BP Pulse Ox 98 F 103 H 20 97/34 L 81 L 08/19/16 09:31 08/19/16 13:10 08/19/16 12:37 08/19/16 13:10 08/19/16 13:10 Intake and Output: 08/19/16 08/19/16 06:59 18:59 Intake Total 0 Balance 0 - Medications Medications: Current Medications Bupropion HCl (Wellbutrin Sr 150 Mg) 150 mg PO DAILY [facility] Buspirone HCl (Buspar) 15 mg PO QID [facility] Clopidogrel Bisulfate (Plavix) 75 mg PO DAILY [facility] Furosemide (Lasix) 40 mg IVP DAILY [facility] Home Med (Home Med) 1 unit PO HS [facility] Hydromorphone HCl (Dilaudid) 1 mg IVP Q4H PRN PRN Reason: Pain, moderate (4-7) Last Admin: 08/19/16 10:44 Dose: 1 mg Sodium Chloride (Sodium Chloride 0.9%) 1,000 mls @ 100 mls/hr IV .Q10H [facility] Last Admin: 08/19/16 09:01 Dose: 100 mls/hr Dopamine HCl/Dextrose (Dopamine 400mg/250ml D5w) 250 mls @ 6.804 mls/hr IV .Q24H PRN; Protocol; 2 MCG/KG/MIN PRN Reason: TITRATE PER MD ORDER Meropenem 1g/NS 100mL IVPB (Meropenem 1g/Ns 100ml Ivpb) 100 mls @ 100 mls/hr IVPB Q12 [facility] PRN Reason: Protocol Stop: 08/20/16 12:01 Micafungin Sodium 100 mg/ (Sodium Chloride) 100 mls @ 100 mls/hr IV DAILY [facility] PRN Reason: Protocol Stop: 09/02/16 14:01 Metronidazole (Flagyl) 100 mls @ 100 mls/hr IVPB Q8 [facility] PRN Reason: Protocol Stop: 09/02/16 14:01 Epinephrine HCl 1 mg/ Sodium (Chloride) 51 mls @ 3.06 mls/hr IV .[id number] PRN; Protocol; 1 MCG/MIN PRN Reason: TITRATE PER MD ORDER Insulin Human Regular (Humulin R High) 0 units SC ACHS [facility] PRN Reason: Protocol Lorazepam (Ativan) 0.5 mg PO BID [facility] PRN Reason: Protocol Metoprolol Tartrate (Lopressor) 25 mg PO BID [facility] Olanzapine (Zyprexa) 20 mg PO HS [facility] Ondansetron HCl (Zofran Inj) 4 mg IVP Q6H PRN PRN Reason: Nausea/Vomiting Last Admin: 08/19/16 10:44 Dose: 4 mg Risperidone (Risperdal Tab) 2 mg PO BID [facility] PRN Reason: Protocol Vancomycin HCl (Vancocin 25 Mg/Ml (Oral Use)) 500 mg PO QID [facility] PRN Reason: Protocol Stop: 09/02/16 14:01 Last Admin: 08/19/16 13:13 Dose: Not Given - Labs Labs: 08/19/16 12:45 08/19/16 12:45 PT 11.8 Seconds (9.9-11.8) 08/19/16 05:00 INR 1.09 (0.93-1.08) H 08/19/16 05:00 APTT 28.3 Seconds (23.7-30.8) 08/19/16 05:00 Procedures Attestation:: I certify that I have explained the specified Operation(s) or Procedure(s), risks, benefits and reasonable alternatives to the Patient and/or other person responsible. The opportunity was given to ask questions and all questions answered - Arterial Line Left Axillary Aseptic technique was employed throughout the procedure: Hand Hygiene done prior to procedure, Full sterile barriers (mask, hair cover, sterile gown, sterile gloves), Full body sterile drape, Chloraprep Antiseptic: 30 second prep for IJ or SC sites Time Out Performed: Yes Pt. placed on Pulse Ox Monitor: Yes Central Line Prep: Chlorhexidine-Alcohol Combination Ultrasound Used for Placement: Yes Technique Used: Guide Wire Technique Secured by: Suture Patient Tolerated Procedure: no complications Immediate Complications: none <Jared BETH,Nazia H - Last Filed: 08/19/16 13:45> Objective - Vital Signs/Intake and Output Vital Signs (last 24 hours): Temp Pulse Resp BP Pulse Ox 98 F 103 H 20 97/34 L 81 L 08/19/16 09:31 08/19/16 13:10 08/19/16 12:37 08/19/16 13:10 08/19/16 13:10 Intake and Output: 08/19/16 08/19/16 06:59 18:59 Intake Total 0 Balance 0 - Medications Medications: Current Medications Sodium Chloride (Sodium Chloride 0.9%) 1,000 mls @ 100 mls/hr IV .Q10H [facility] Last Admin: 08/19/16 09:01 Dose: 100 mls/hr Meropenem 1g/NS 100mL IVPB (Meropenem 1g/Ns 100ml Ivpb) 100 mls @ 100 mls/hr IVPB Q12 [facility] PRN Reason: Protocol Stop: 08/20/16 12:01 Micafungin Sodium 100 mg/ (Sodium Chloride) 100 mls @ 100 mls/hr IV DAILY [facility] PRN Reason: Protocol Stop: 09/02/16 14:01 Metronidazole (Flagyl) 100 mls @ 100 mls/hr IVPB Q8 [facility] PRN Reason: Protocol Stop: 09/02/16 14:01 Epinephrine HCl 1 mg/ Sodium (Chloride) 51 mls @ 3.06 mls/hr IV .[id number] PRN; Protocol; 1 MCG/MIN PRN Reason: TITRATE PER MD ORDER Dexmedetomidine HCl (Precedex 4 Mcg/Ml (100 Ml)) 100 mls @ 4.536 mls/hr IV .Q22H3M PRN; Protocol; 0.2 MCG/KG/HR PRN Reason: Agitation Sodium Chloride (Sodium Chloride 0.9%) 1,000 mls @ 999 mls/hr IV .Q1H1M STA Stop: 08/19/16 14:40 Insulin Human Regular (Humulin R High) 0 units SC ACHS [facility] PRN Reason: Protocol Ondansetron HCl (Zofran Inj) 4 mg IVP Q6H PRN PRN Reason: Nausea/Vomiting Last Admin: 08/19/16 10:44 Dose: 4 mg Vancomycin HCl (Vancocin 25 Mg/Ml (Oral Use)) 500 mg PO QID [facility] PRN Reason: Protocol Stop: 09/02/16 14:01 Last Admin: 08/19/16 13:13 Dose: Not Given - Labs Labs: 08/19/16 12:45 08/19/16 12:45 PT 11.8 Seconds (9.9-11.8) 08/19/16 05:00 INR 1.09 (0.93-1.08) H 08/19/16 05:00 APTT 28.3 Seconds (23.7-30.8) 08/19/16 05:00 Attending/Attestation - Attestation I have personally seen and examined this patient.: Yes I have fully participated in the care of the patient.: Yes I have reviewed all pertinent clinical information, including history, physical exam and plan: Yes Notes (Text): 08/19/16 13:44 A- Line axillary (L) Emergent need due to high dose of vasopressors without cuff pressures available. L Axillary draped and prepped in sterile fashion . under US guidance. No complications . Waveform seen with BP seen 90/50
[2016-08-19] MEDS: metroNIDAZOLE IV 500 mg/100 ml 100 ML IVPB SCH ×2 (13:43→21:13)
[2016-08-19 13:51] LABS: ARTERIAL BLOOD GAS HCO3 16.8 mmol/L (21-28); ARTERIAL BLOOD GAS O2 CAPACITY 12.2 mL/dl (16-24); ARTERIAL BLOOD GAS O2 CONTENT 12.1 ML/dl (15-23); ARTERIAL BLOOD HGB O2 SAT 96.3 % (95.0-98.0); HHB 0.8 % (0-5)
[2016-08-19 13:58] LABS: ADD MANUAL DIFF? NO
[2016-08-19] MEDS ORDERED: Micafungin 100 MG in Sodium Chloride 0.9% 100 ML IV SCH (14:00)
[2016-08-19 14:02] LABS: ARTERIAL BLOOD GAS PH 7.04 (7.35-7.45)
--- NOTE | 2016-08-19 14:23 | RAD ---
HISTORY: s/p cardiac arrest COMPARISON: 08/19/2016 FINDINGS: The endotracheal tube terminates 4.5 cm proximal to the addy. Nasogastric tube terminates in the stomach. LUNGS: There is mild pulmonary venous congestion. There is bibasilar atelectasis. PLEURA: No significant pleural effusion identified, no pneumothorax apparent. CARDIOVASCULAR: The heart is normal in size. Status post prosthetic valve replacement. OSSEOUS STRUCTURES: No significant abnormalities. VISUALIZED UPPER ABDOMEN: Normal. OTHER FINDINGS: None. IMPRESSION: Pulmonary venous congestion. Endotracheal tube terminates 4.5 cm proximal to the addy.
--- NOTE | 2016-08-19 14:33 | CP.CCUPN ---
CCU Subjective - Physician Review Events Since Last Encounter (Free Text): 08/19/16 14:20 S/P code Blue on the regular floor. I was called by Rajesh Ibrahim Pt apparently vomited and had sudden SOB and had a drop in BP before becoming unstable with PEA rhythm. Pt had 3 rounds of ACLS and ROSC was achieved. Pt was intubated and then brought to the ICU. Emergent TLC and A-Line was placed and patient was started on Levophed and EPI drip to keep MAP>65. Ph 7.0 , pupils are fixed 3mm, sudden jerky movements are seen . Pt was recently in the hospital 3 weeks ago for SBO and underwent emergent surgery. CCU Objective - Vital Signs / Intake & Output Vital Signs (Last 4 hours): Vital Signs Pulse Resp BP Pulse Ox 08/19/16 13:22 75 20 70/44 L 08/19/16 13:10 103 H 97/34 L 81 L 08/19/16 13:00 103 H 94 L 08/19/16 12:50 109 H 71/33 L 97 08/19/16 12:45 105 H 69/29 L 100 08/19/16 12:40 106 H 75/41 L 99 08/19/16 12:37 104 H 20 78/42 L 08/19/16 12:35 107 H 78/42 L 99 08/19/16 12:30 98 H 28 H 67/26 L 100 08/19/16 12:29 99 H 100 08/19/16 12:22 114 H 9 L 105/73 08/19/16 11:00 93 H Intake and Output (Last 8hrs): Intake & Output 08/18/16 08/19/16 08/19/16 22:59 06:59 14:59 Intake Total 0 Balance 0 Weight 215 lb Intake: Blood Product 0 Red Blood Cells Cpd As5 0 Lr Unit [id number] - Physical Exam Head: Positive for: Atraumatic, Normocephalic. Negative for: Tenderness, Contusion, Swelling, Ecchymosis, Abrasion, Laceration, Other Pupils: Positive for: PERRL. Negative for: Sluggish, Non-Reactive, Pinpoint, Other Extroacular Muscles: Positive for: EOMI. Negative for: Gaze Palsy, Entrapment, Other Conjunctiva: Positive for: Normal. Negative for: Injected, Icteric, Other Ears: Negative for: Normal, NORMAL TM, Erythema, Normal Canal, TM Bulging, Fluid , TM Perf, Other Mouth: Positive for: Moist Mucous Membranes, Normal Tounge (ett) Pharnyx: Positive for: Normal Nose (Internal): Positive for: Normal Inspection Neck: Positive for: Normal Range of Motion Respiratory/Chest: Positive for: Decreased Breath Sounds. Negative for: Clear to Auscultation, Good Air Exchange, Respiratory Distress, Accessory Muscle Use, Wheezes, Rales, Retracting, Rhonchi, Tachypneic, Tender to Palpation, Other Cardiovascular: Positive for: Regular Rate and Rhythm, Normal S1, S2. Negative for: Murmurs Abdomen: Positive for: Tenderness (Mild tenderness to lower abdomen), Distention , Peritoneal Signs, Scars (Sutured midline surgical scar with small separation to suture line). Negative for: Normal Bowel Sounds, Rebound, Guarding, McBurney 's Point Tender, Rovsing's Sign Present, Hernias, Feeding Tubes, Ostomy Tubes, Mass/Organomegaly, Other Back: Positive for: Normal Inspection Upper Extremity: Positive for: Normal Inspection. Negative for: Cyanosis, Edema Lower Extremity: Positive for: Normal Inspection. Negative for: Edema Neurological: Negative for: GCS=15, CN II-XII Intact, Speech Normal, Motor Func Grossly Intact, Normal Sensory Function, Normal Cerebellar Funct, Norm Deep Tendon Reflexes, Gait Normal, Memory Normal, Normal 2Pt Descrimination, Other Psychiatric: Negative for: Alert, Oriented x 3, Normal Insight, Normal Concentration, Normal Affect, Normal Mood, Anxious, Agitated, Depressed Mood, Suicidal Ideation, Homicidal Ideation, Delusional, Hallucinations, Intoxicated, Lethargic, Other - Medications Active Medications: Active Medications Generic Name Dose Route Start Last Admin Trade Name Freq PRN Reason Stop Dose Admin Fentanyl 100 mcg 08/19/16 14:14 Fentanyl IVP Q2 PRN pain>8 Sodium Chloride 1,000 mls @ 100 mls/hr 08/19/16 08:15 08/19/16 09:01 Sodium Chloride 0.9% IV 100 mls/hr .Q10H MYRIAM Administration Meropenem 1g/NS 100mL IVPB 100 mls @ 100 mls/hr 08/19/16 22:00 Meropenem 1g/Ns 100ml Ivpb IVPB 08/20/16 12:01 Q12 MYRIAM Protocol Micafungin Sodium 100 mg/ 100 mls @ 100 mls/hr 08/19/16 14:00 08/19/16 13:43 Sodium Chloride IV 09/02/16 14:01 100 mls/hr DAILY MYRIAM Administration Protocol Metronidazole 100 mls @ 100 mls/hr 08/19/16 14:00 08/19/16 13:43 Flagyl IVPB 09/02/16 14:01 100 mls/hr Q8 MYRIAM Administration Protocol Epinephrine HCl 1 mg/ Sodium 51 mls @ 3.06 mls/hr 08/19/16 13:08 08/19/16 13:45 Chloride IV 3.06 mls/hr .[id number] PRN Administration TITRATE PER MD ORDER Protocol 1 MCG/MIN Dexmedetomidine HCl 100 mls @ 4.536 mls/hr 08/19/16 13:31 08/19/16 14:07 Precedex 4 Mcg/Ml (100 Ml) IV 4.536 mls/hr .Q22H3M PRN Administration Agitation Protocol 0.2 MCG/KG/HR Sodium Chloride 1,000 mls @ 999 mls/hr 08/19/16 13:40 08/19/16 13:45 Sodium Chloride 0.9% IV 08/19/16 14:40 999 mls/hr .Q1H1M STA Administration Norepinephrine Bitartrate 4 mg 254 mls @ 57.15 mls/hr 08/19/16 14:09 / Dextrose IV .Q4H27M PRN TITRATE PER MD ORDER Protocol 15 MCG/MIN Sodium Bicarbonate 100 meq/ 1,100 mls @ 150 mls/hr 08/19/16 14:30 Sodium Chloride IV .Q7H20M [facility] Insulin Human Regular 0 units 08/19/16 11:30 Humulin R High SC ACHS [facility] Protocol Ondansetron HCl 4 mg 08/19/16 10:26 08/19/16 10:44 Zofran Inj IVP 4 mg Q6H PRN Administration Nausea/Vomiting Vancomycin HCl 500 mg 08/19/16 14:00 08/19/16 13:13 Vancocin 25 Mg/Ml (Oral Use) PO 09/02/16 14:01 Not Given QID [facility] Protocol - Patient Studies Lab Studies: Lab Studies 08/19/16 08/19/1617 Range/Units 13:47 12:45 12:00 WBC 14.6 H D (4.5-11.0) 10^3/ul RBC 2.49 L (3.5-6.1) 10^6/uL Hgb 8.2 L (14.0-18.0) gm/dL Hct 24.2 L (42.0-52.0) % MCV 97.2 (80.0-105.0) fL MCH 32.9 (25.0-35.0) pg MCHC 33.9 (31.0-37.0) g/dl RDW 13.3 (11.5-14.5) % Plt Count 234 (120.0-450.0) 10^3/uL MPV 10.1 (7.0-11.0) fl Gran % 90.8 H (50.0-68.0) % Lymph % (Auto) 6.4 L (22.0-35.0) % Routt % (Auto) 2.6 (1.0-6.0) % Eos % (Auto) 0.1 L (1.5-5.0) % Baso % (Auto) 0.1 (0.0-3.0) % Gran # 13.30 H (1.4-6.5) Lymph # 0.9 L (1.2-3.4) Routt # 0.4 (0.1-0.6) Eos # 0.0 (0.0-0.7) Baso # 0.01 (0.0-2.0) K/mm3 pCO2 62 H (35-45) mm/Hg pO2 134.0 H 88 H (80-100) mm/Hg HCO3 16.8 L (21-28) mmol/L ABG pH 7.04 L* (7.35-7.45) ABG Total CO2 18.7 L (22-28) mmol.L ABG O2 Saturation 99.2 H (95-98) % ABG O2 Content 12.1 L (15-23) ML/dl ABG Base Excess -13.4 L (-2.0-3.0) mmol/L ABG Hemoglobin 8.7 L (11.7-17.4) g/dL ABG Carboxyhemoglobin 2.0 H (0.5-1.5) % POC ABG HHb (Measured) 0.8 (0-5) % ABG Methemoglobin 1.0 (0.0-3.0) % ABG O2 Capacity 12.2 L (16-24) mL/dl VBG pH 7.00 L* (7.32-7.43) VBG pCO2 54.0 (40-60) VBG HCO3 13.3 L (21-28) mmol/l VBG Total CO2 15.0 L (22-28) mmol.L VBG O2 Sat (Calc) 94.9 H (40-65) % VBG Base Excess -18.1 L (0.0-2.0) mmol/L VBG Potassium 4.3 (3.6-5.2) mmol/L Hgb O2 Saturation 96.3 (95.0-98.0) % Glucose 429 H* D (75-110) mg/dl Lactate 10.6 H* (0.7-2.1) mmol/L FiO2 70.0 21.0 % Sodium 127 L 132.0 (132-148) mmol/L Potassium 4.0 (3.6-5.0) mmol/L Chloride 95 L 98.0 (98-107) mmol/L Carbon Dioxide 14 L (21-33) mmol/L Anion Gap 22 H (10-20) BUN 37 H (7-21) mg/dL Creatinine 1.8 H (0.5-1.4) mg/dL Est GFR ( Amer) 47 Est GFR (Non-Af Amer) 39 Random Glucose 391 H* (70-110) mg/dL Calcium 6.7 L* (8.4-10.5) mg/dL Phosphorus 7.0 H (2.5-4.5) mg/dL Magnesium 1.2 L (1.7-2.2) mg/dL Total Bilirubin 0.4 (0.2-1.3) mg/dL AST 58 (15-59) U/L ALT 44 (7-56) U/L Alkaline Phosphatase 66 (38-133) U/L Troponin I 0.11 D ng/mL NT-Pro-B Natriuret Pep (0-450) pg/mL Total Protein 4.2 L (5.8-8.3) g/dL Albumin 2.0 L (3.0-4.8) g/dL Globulin 2.1 gm/dL Albumin/Globulin Ratio 1.0 L (1.1-1.8) Venous Blood Potassium 4.3 (3.6-5.2) mmol/L Urine Color (YELLOW) Urine Appearance (CLEAR) Urine pH (4.7-8.0) Ur Specific Tower (1.005-1.035) Urine Protein (<30 mg/dL) mg/dL Urine Glucose (UA) (NEGATIVE) mg/dL Urine Ketones (NEGATIVE) mg/dL Urine Blood (NEGATIVE) Urine Nitrate (NEGATIVE) Urine Bilirubin (NEGATIVE) Urine Urobilinogen (<1 E.U./dL) E.U./dL Ur Leukocyte Esterase (NEGATIVE) Eligio/uL Blood Type Antibody Screen Crossmatch BBK History Checked 08/19/16 08/19/16 08/19/16 Range/Units 09:20 08:45 08:26 WBC (4.5-11.0) 10^3/ul RBC (3.5-6.1) 10^6/uL Hgb (14.0-18.0) gm/dL Hct (42.0-52.0) % MCV (80.0-105.0) fL MCH (25.0-35.0) pg MCHC (31.0-37.0) g/dl RDW (11.5-14.5) % Plt Count (120.0-450.0) 10^3/uL MPV (7.0-11.0) fl Gran % (50.0-68.0) % Lymph % (Auto) (22.0-35.0) % Routt % (Auto) (1.0-6.0) % Eos % (Auto) (1.5-5.0) % Baso % (Auto) (0.0-3.0) % Gran # (1.4-6.5) Lymph # (1.2-3.4) Routt # (0.1-0.6) Eos # (0.0-0.7) Baso # (0.0-2.0) K/mm3 pCO2 (35-45) mm/Hg pO2 (80-100) mm/Hg HCO3 (21-28) mmol/L ABG pH (7.35-7.45) ABG Total CO2 (22-28) mmol.L ABG O2 Saturation (95-98) % ABG O2 Content (15-23) ML/dl ABG Base Excess (-2.0-3.0) mmol/L ABG Hemoglobin (11.7-17.4) g/dL ABG Carboxyhemoglobin (0.5-1.5) % POC ABG HHb (Measured) (0-5) % ABG Methemoglobin (0.0-3.0) % ABG O2 Capacity (16-24) mL/dl VBG pH (7.32-7.43) VBG pCO2 (40-60) VBG HCO3 (21-28) mmol/l VBG Total CO2 (22-28) mmol.L VBG O2 Sat (Calc) (40-65) % VBG Base Excess (0.0-2.0) mmol/L VBG Potassium (3.6-5.2) mmol/L Hgb O2 Saturation (95.0-98.0) % Glucose (75-110) mg/dl Lactate (0.7-2.1) mmol/L FiO2 % Sodium (132-148) mmol/L Potassium (3.6-5.0) mmol/L Chloride (98-107) mmol/L Carbon Dioxide (21-33) mmol/L Anion Gap (10-20) BUN (7-21) mg/dL Creatinine (0.5-1.4) mg/dL Est GFR ( Amer) Est GFR (Non-Af Amer) Random Glucose (70-110) mg/dL Calcium (8.4-10.5) mg/dL Phosphorus (2.5-4.5) mg/dL Magnesium (1.7-2.2) mg/dL Total Bilirubin (0.2-1.3) mg/dL AST (15-59) U/L ALT (7-56) U/L Alkaline Phosphatase (38-133) U/L Troponin I 0.06 D ng/mL NT-Pro-B Natriuret Pep 665 H (0-450) pg/mL Total Protein (5.8-8.3) g/dL Albumin (3.0-4.8) g/dL Globulin gm/dL Albumin/Globulin Ratio (1.1-1.8) Venous Blood Potassium (3.6-5.2) mmol/L Urine Color Yellow (YELLOW) Urine Appearance Clear (CLEAR) Urine pH 6.0 (4.7-8.0) Ur Specific Tower 1.015 (1.005-1.035) Urine Protein Negative (<30 mg/dL) mg/dL Urine Glucose (UA) 100 H (NEGATIVE) mg/dL Urine Ketones Negative (NEGATIVE) mg/dL Urine Blood Negative (NEGATIVE) Urine Nitrate Negative (NEGATIVE) Urine Bilirubin Negative (NEGATIVE) Urine Urobilinogen 0.2 (<1 E.U./dL) E.U./dL Ur Leukocyte Esterase Negative (NEGATIVE) Eligio/uL Blood Type O POSITIVE Antibody Screen Negative Crossmatch See Detail BBK History Checked Patient has bt 08/19/16 Range/Units 08:13 WBC (4.5-11.0) 10^3/ul RBC (3.5-6.1) 10^6/uL Hgb (14.0-18.0) gm/dL Hct (42.0-52.0) % MCV (80.0-105.0) fL MCH (25.0-35.0) pg MCHC (31.0-37.0) g/dl RDW (11.5-14.5) % Plt Count (120.0-450.0) 10^3/uL MPV (7.0-11.0) fl Gran % (50.0-68.0) % Lymph % (Auto) (22.0-35.0) % Routt % (Auto) (1.0-6.0) % Eos % (Auto) (1.5-5.0) % Baso % (Auto) (0.0-3.0) % Gran # (1.4-6.5) Lymph # (1.2-3.4) Routt # (0.1-0.6) Eos # (0.0-0.7) Baso # (0.0-2.0) K/mm3 pCO2 (35-45) mm/Hg pO2 82 H (80-100) mm/Hg HCO3 (21-28) mmol/L ABG pH (7.35-7.45) ABG Total CO2 (22-28) mmol.L ABG O2 Saturation (95-98) % ABG O2 Content (15-23) ML/dl ABG Base Excess (-2.0-3.0) mmol/L ABG Hemoglobin (11.7-17.4) g/dL ABG Carboxyhemoglobin (0.5-1.5) % POC ABG HHb (Measured) (0-5) % ABG Methemoglobin (0.0-3.0) % ABG O2 Capacity (16-24) mL/dl VBG pH 7.32 (7.32-7.43) VBG pCO2 54.0 (40-60) VBG HCO3 27.8 (21-28) mmol/l VBG Total CO2 29.5 H (22-28) mmol.L VBG O2 Sat (Calc) 97.0 H (40-65) % VBG Base Excess 0.7 (0.0-2.0) mmol/L VBG Potassium 3.7 (3.6-5.2) mmol/L Hgb O2 Saturation (95.0-98.0) % Glucose 322 H (75-110) mg/dl Lactate 2.4 H (0.7-2.1) mmol/L FiO2 21 % Sodium 131.0 L (132-148) mmol/L Potassium (3.6-5.0) mmol/L Chloride 94.0 L (98-107) mmol/L Carbon Dioxide (21-33) mmol/L Anion Gap (10-20) BUN (7-21) mg/dL Creatinine (0.5-1.4) mg/dL Est GFR ( Amer) Est GFR (Non-Af Amer) Random Glucose (70-110) mg/dL Calcium (8.4-10.5) mg/dL Phosphorus (2.5-4.5) mg/dL Magnesium (1.7-2.2) mg/dL Total Bilirubin (0.2-1.3) mg/dL AST (15-59) U/L ALT (7-56) U/L Alkaline Phosphatase (38-133) U/L Troponin I ng/mL NT-Pro-B Natriuret Pep (0-450) pg/mL Total Protein (5.8-8.3) g/dL Albumin (3.0-4.8) g/dL Globulin gm/dL Albumin/Globulin Ratio (1.1-1.8) Venous Blood Potassium 3.7 (3.6-5.2) mmol/L Urine Color (YELLOW) Urine Appearance (CLEAR) Urine pH (4.7-8.0) Ur Specific Tower (1.005-1.035) Urine Protein (<30 mg/dL) mg/dL Urine Glucose (UA) (NEGATIVE) mg/dL Urine Ketones (NEGATIVE) mg/dL Urine Blood (NEGATIVE) Urine Nitrate (NEGATIVE) Urine Bilirubin (NEGATIVE) Urine Urobilinogen (<1 E.U./dL) E.U./dL Ur Leukocyte Esterase (NEGATIVE) Eligio/uL Blood Type Antibody Screen Crossmatch BBK History Checked Laboratory Results - last 24 hr 08/19/16 08/19/16 08/19/16 08:13 08:26 08:45 WBC RBC Hgb Hct MCV MCH MCHC RDW Plt Count MPV Gran % Lymph % (Auto) Routt % (Auto) Eos % (Auto) Baso % (Auto) Gran # Lymph # Routt # Eos # Baso # pCO2 pO2 82 H HCO3 ABG pH ABG Total CO2 ABG O2 Saturation ABG O2 Content ABG Base Excess ABG Hemoglobin ABG Carboxyhemoglobin POC ABG HHb (Measured) ABG Methemoglobin ABG O2 Capacity VBG pH 7.32 VBG pCO2 54.0 VBG HCO3 27.8 VBG Total CO2 29.5 H VBG O2 Sat (Calc) 97.0 H VBG Base Excess 0.7 VBG Potassium 3.7 Hgb O2 Saturation Sodium 131.0 L Chloride 94.0 L Glucose 322 H Lactate 2.4 H FiO2 21 Potassium Carbon Dioxide Anion Gap BUN Creatinine Est GFR ( Amer) Est GFR (Non-Af Amer) Random Glucose Calcium Phosphorus Magnesium Total Bilirubin AST ALT Alkaline Phosphatase Troponin I 0.06 D NT-Pro-B Natriuret Pep 665 H Total Protein Albumin Globulin Albumin/Globulin Ratio Venous Blood Potassium 3.7 Urine Color Urine Appearance Urine pH Ur Specific Tower Urine Protein Urine Glucose (UA) Urine Ketones Urine Blood Urine Nitrate Urine Bilirubin Urine Urobilinogen Ur Leukocyte Esterase Blood Type O POSITIVE Antibody Screen Negative Crossmatch See Detail BBK History Checked Patient has bt 08/19/16 08/19/16 08/19/16 09:20 12:00 12:45 WBC 14.6 H D RBC 2.49 L Hgb 8.2 L Hct 24.2 L MCV 97.2 MCH 32.9 MCHC 33.9 RDW 13.3 Plt Count 234 MPV 10.1 Gran % 90.8 H Lymph % (Auto) 6.4 L Routt % (Auto) 2.6 Eos % (Auto) 0.1 L Baso % (Auto) 0.1 Gran # 13.30 H Lymph # 0.9 L Routt # 0.4 Eos # 0.0 Baso # 0.01 pCO2 pO2 88 H HCO3 ABG pH ABG Total CO2 ABG O2 Saturation ABG O2 Content ABG Base Excess ABG Hemoglobin ABG Carboxyhemoglobin POC ABG HHb (Measured) ABG Methemoglobin ABG O2 Capacity VBG pH 7.00 L* VBG pCO2 54.0 VBG HCO3 13.3 L VBG Total CO2 15.0 L VBG O2 Sat (Calc) 94.9 H VBG Base Excess -18.1 L VBG Potassium 4.3 Hgb O2 Saturation Sodium 132.0 127 L Chloride 98.0 95 L Glucose 429 H* D Lactate 10.6 H* FiO2 21.0 Potassium 4.0 Carbon Dioxide 14 L Anion Gap 22 H BUN 37 H Creatinine 1.8 H Est GFR ( Amer) 47 Est GFR (Non-Af Amer) 39 Random Glucose 391 H* Calcium 6.7 L* Phosphorus 7.0 H Magnesium 1.2 L Total Bilirubin 0.4 AST 58 ALT 44 Alkaline Phosphatase 66 Troponin I 0.11 D NT-Pro-B Natriuret Pep Total Protein 4.2 L Albumin 2.0 L Globulin 2.1 Albumin/Globulin Ratio 1.0 L Venous Blood Potassium 4.3 Urine Color Yellow Urine Appearance Clear Urine pH 6.0 Ur Specific Tower 1.015 Urine Protein Negative Urine Glucose (UA) 100 H Urine Ketones Negative Urine Blood Negative Urine Nitrate Negative Urine Bilirubin Negative Urine Urobilinogen 0.2 Ur Leukocyte Esterase Negative Blood Type Antibody Screen Crossmatch BBK History Checked 08/19/16 13:47 WBC RBC Hgb Hct MCV MCH MCHC RDW Plt Count MPV Gran % Lymph % (Auto) Routt % (Auto) Eos % (Auto) Baso % (Auto) Gran # Lymph # Routt # Eos # Baso # pCO2 62 H pO2 134.0 H HCO3 16.8 L ABG pH 7.04 L* ABG Total CO2 18.7 L ABG O2 Saturation 99.2 H ABG O2 Content 12.1 L ABG Base Excess -13.4 L ABG Hemoglobin 8.7 L ABG Carboxyhemoglobin 2.0 H POC ABG HHb (Measured) 0.8 ABG Methemoglobin 1.0 ABG O2 Capacity 12.2 L VBG pH VBG pCO2 VBG HCO3 VBG Total CO2 VBG O2 Sat (Calc) VBG Base Excess VBG Potassium Hgb O2 Saturation 96.3 Sodium Chloride Glucose Lactate FiO2 70.0 Potassium Carbon Dioxide Anion Gap BUN Creatinine Est GFR ( Amer) Est GFR (Non-Af Amer) Random Glucose Calcium Phosphorus Magnesium Total Bilirubin AST ALT Alkaline Phosphatase Troponin I NT-Pro-B Natriuret Pep Total Protein Albumin Globulin Albumin/Globulin Ratio Venous Blood Potassium Urine Color Urine Appearance Urine pH Ur Specific Tower Urine Protein Urine Glucose (UA) Urine Ketones Urine Blood Urine Nitrate Urine Bilirubin Urine Urobilinogen Ur Leukocyte Esterase Blood Type Antibody Screen Crossmatch BBK History Checked EKG/Cardiology Studies: Cardiology / EKG Studies 08/19/16 12:19 ELECTROCARDIOGRAM Stat Comment: done Reason For Exam: s/p cardiac arrest Review of Systems - Review of Systems Systems not reviewed;Unavailable: Altered Mental Status Critical Care Progress Note - Ventilator Checklist PUD Prophalyxis: Yes DVT Prophylaxis: Yes - Vent Settings MODE:: ASSIST CONTROL Assessment/Plan - Assessment and Plan (Free Text) Assessment: 60 y/o M w/ acute Respiratory failure Acute Peritonitis/ possible bowel seen on CT abd this morning Surgery aware. Evaluation for emergent OR to be made soon. Family unable to be reached . Emergent stabilization started. Acute Coffee ground emesis Respiratory failure AG metabolic acidosis w/ elevated Lactate Continue with supportive measures Levophed and EPI drip started to keep MAP>65 3L n.S started as bolus, IVC collapsed. CHF hx EF 25%. Cardiology consulted Sedation on Precedex and Fentanyl prn Abx started per ID - + antifungals , Cx pending HGB> 9.0 , 1 unit prbc to be given. Labs checked q6 hrs. EKG pending . Bicarbonate drip started @150ml/hr ABG to be followed in 2 hrs. Very poor prognosis due to Bowel ischemia seen on CT earlier . cc time 72 min + procedures.
[2016-08-19 14:50] VITALS: BMI 32.6
[2016-08-19] MEDS ORDERED: Fentanyl 1000mcg/100ml NS 100 ML IV PRN (14:53)
--- NOTE | 2016-08-19 15:27 | CON ---
DATE: 08/19/2016 The patient is seen in the ICU 128, bed 5. CHIEF COMPLAINT: Respiratory failure x 1 day. HISTORY OF PRESENT ILLNESS: A 60-year-old male with history of ischemic colitis who had surgery done on the last admission, now post-procedure day , history of pseudomembranous colitis, hypertension, coronary artery disease, chronic congestive heart failure, obstructive sleep apnea, diabetes mellitus, dyslipidemia, who was admitted through the Emergency Room earlier this morning with a chief complaint of abdominal pain and with a diagnosis of abdominal pain. The patient is admitted to 276, bed 1 in the telemetry unit and patient had a respiratory/cardiac arrest, was transferred to the unit. At this point, patient is intubated on a ventilator, unresponsive. REVIEW OF SYSTEMS: Reveals that the patient did not have any fevers. The patient did have abdominal pain on admission and complaining of diffuse abdominal pain for a few hours, complaining of nausea, vomiting, diarrhea and a small bowel obstruction, had ischemic bowel, underwent emergency laparotomy and a right hemicolectomy and anastomosis on the last admission, almost a month ago. PAST MEDICAL HISTORY: Significant for coronary artery disease, diabetes mellitus, hypertension, chronic congestive heart failure, obstructive sleep apnea and dyslipidemia and schizophrenia. PAST SURGICAL HISTORY: Significant for recent right hemicolectomy approximately a month ago. ALLERGIES: THE PATIENT IS ALLERGIC TO HALDOL AND OXYCODONE. MEDICATIONS: At home include the patient to be on risperidone and Wellbutrin and Restoril and Zyprexa, Lopressor, metformin, lorazepam, Lasix, Plavix and BuSpar. PHYSICAL EXAMINATION: GENERAL: The patient is intubated on a ventilator, in the ICU. VITAL SIGNS: Temperature of 97, a heart rate of 114, respiratory rate on the vent, it was up to 21 with a blood pressure down to 78/40 now, on pressors. HEENT: Reveals ET tube in place. NECK: Supple. LUNGS: Have decreased breath sounds. HEART: Normal S1, S2. ABDOMEN: Distended, tender and the surgical site is clean. LABORATORY EXAMINATION: Reveals a white count of 19,400, hemoglobin of 10, platelets of 309. BUN of 41, creatinine is 1.7. On the last admission, creatinine was 1.3. That was on 08/08. The patient's creatinine had been 1.2- 1.3 range. BNP 665 and lipase is 22. Random glucose is 335. Urine is unremarkable, negative leukocytes, negative blood. He does have 100 glucose. Microbiology from previous admissions reveals the patient's blood cultures to be negative, stool cultures to be negative. The patient did have a C. difficile antigen that was positive, but the toxin was negative on the last admission on 08/02/2016. The patient also had a CAT scan of the abdomen and pelvis, which revealed there is a small right and trace of left pleural effusion , atelectasis and the bowel was distended, air within the stomach wall, marked dilatation of small bowel and extensive pneumatosis intestinalis and multiple sutures in the transverse colon and developed marked pneumatosis intestinalis with dilatation of the small bowel loops and presumptive gastric emphysema, interval progression of gas in the portal venous branch. The patient also had a chest x-ray, which reveals a pneumonia in the right lower lobe in a COPD patient. ASSESSMENT AND PLAN: A 60-year-old male with hypertension, coronary artery disease, chronic congestive heart failure, obstructive sleep apnea, diabetes mellitus, schizoaffective, dyslipidemia, chronic obstructive lung disease, history of pseudomembranous colitis, history of ischemic colitis, post surgery day #23 with right hemicolectomy. Now presenting with septic shock, respiratory failure, intubated on a ventilator with bowel as the source of his septic shock with an aspiration right lower lobe healthcare-associated aspiration, probable gram-positive cocci, probable versus gram-negative aiyana pneumonia in a patient with acute kidney injury. Creatinine has changed from last admission from 1.3 to 1.7, on top of chronic kidney injury, status post cardiac arrest and respiratory arrest with respiratory failure, intubated on a ventilator. We will treat the patient with vancomycin, meropenem, Mycamine. The patient was given vancomycin and meropenem earlier today in the Emergency Room. We will continue the present course and add Mycamine pending lay culture results, blood, urine, sputum, methicillin-resistant Staphylococcus aureus screen.will order cdiff and tx with iv flagyl and po vanco Overall prognosis is quite poor for this patient in septic shock. Surgical and GI consultation and type bar and segment assembler on the case. We will follow with you. Brown Garcia MD cc: [id number] TT: 08/19/2016 15:27:18 Confirmation # [id number] Dictation # [id number] [id number]
[2016-08-19 16:20] LABS: VENOUS BLOOD PH 7.05 (7.32-7.43)
[2016-08-19] MEDS: Insulin Reg-HIGH-Coverage SC SCH ×2 (17:38→21:59)
[2016-08-19 17:45] LABS: ABG MECHANICAL RATE 30; ARTERIAL BLOOD GAS HCO3 14.6 mmol/L (21-28); ATERIAL BLOOD GAS PEEP 5
[2016-08-19 17:46] LABS: ARTERIAL BLOOD GAS PH 7.13 (7.35-7.45)
[2016-08-19] MEDS ORDERED: levETIRAcetam 1,000 MG in Sodium Chloride 0.9% 100 ML IV ONE (17:51)
--- NOTE | 2016-08-19 18:03 | CP.PCM.PN ---
Subjective - Date & Time of Evaluation Date of Evaluation: 08/19/16 Time of Evaluation: 11:45 - Subjective Subjective: responded to code blue pt with bowel ichemia was admitted early this morning and on the monitor as per nurse had pvc,s and v-tac and then vomited coffe ground and lost conciousness . pt with with no pulse no bp not responding ,no breathing , was covered with large amount of coffe ground vomitus which was suctioned, acls protocol was performed and pt was intubated , monitor rythem was pea.NS was started ,pt regained pulse. pt was transferred to icu . pt was discussed with dr yue guadarrama . labs were ordered cbc. cmp, and abg , cardiac iso chest xray . and transfussion of prbc was started. Objective - Vital Signs/Intake and Output Vital Signs (last 24 hours): Temp Pulse Resp BP Pulse Ox 95.9 F L 98 H 32 H 97/49 L 96 08/19/16 17:35 08/19/16 17:35 08/19/16 17:35 08/19/16 17:35 08/19/16 15:54 Intake and Output: 08/19/16 08/19/16 06:59 18:59 Intake Total 678 Balance 678 - Medications Medications: Current Medications Sodium Chloride (Sodium Chloride 0.9%) 1,000 mls @ 100 mls/hr IV .Q10H [facility] Last Admin: 08/19/16 09:01 Dose: 100 mls/hr Meropenem 1g/NS 100mL IVPB (Meropenem 1g/Ns 100ml Ivpb) 100 mls @ 100 mls/hr IVPB Q12 MYRIAM PRN Reason: Protocol Stop: 08/20/16 12:01 Micafungin Sodium 100 mg/ (Sodium Chloride) 100 mls @ 100 mls/hr IV DAILY MYRIAM PRN Reason: Protocol Stop: 09/02/16 14:01 Last Admin: 08/19/16 13:43 Dose: 100 mls/hr Metronidazole (Flagyl) 100 mls @ 100 mls/hr IVPB Q8 MYRIAM PRN Reason: Protocol Stop: 09/02/16 14:01 Last Admin: 08/19/16 13:43 Dose: 100 mls/hr Epinephrine HCl 1 mg/ Sodium (Chloride) 51 mls @ 3.06 mls/hr IV .[id number] PRN; Protocol; 1 MCG/MIN PRN Reason: TITRATE PER MD ORDER Last Admin: 08/19/16 13:45 Dose: 3.06 mls/hr Norepinephrine Bitartrate 4 mg (/ Dextrose) 254 mls @ 57.15 mls/hr IV .Q4H27M PRN; Protocol; 15 MCG/MIN PRN Reason: TITRATE PER MD ORDER Last Admin: 08/19/16 15:09 Dose: 95.25 mls/hr Sodium Bicarbonate 100 meq/ (Sodium Chloride) 1,100 mls @ 150 mls/hr IV .Q7H20M MYRIAM Last Admin: 08/19/16 14:59 Dose: 150 mls/hr Fentanyl Citrate (Fentanyl Citrate/Sodium Chloride 1 Mg/100 Ml) 100 mls @ 10 mls/hr IV .Q10H PRN; Protocol; 100 MCG/HR PRN Reason: TITRATE PER MD ORDER Last Admin: 08/19/16 15:00 Dose: 10 mls/hr Levetiracetam 1,000 mg/ Sodium (Chloride) 110 mls @ 440 mls/hr IV ONCE ONE Stop: 08/19/16 18:05 Insulin Human Regular (Humulin R High) 0 units SC ACHS MYRIAM PRN Reason: Protocol Last Admin: 08/19/16 17:38 Dose: 1 units Ondansetron HCl (Zofran Inj) 4 mg IVP Q6H PRN PRN Reason: Nausea/Vomiting Last Admin: 08/19/16 10:44 Dose: 4 mg Vancomycin HCl (Vancocin 25 Mg/Ml (Oral Use)) 500 mg PO QID [facility] PRN Reason: Protocol Stop: 09/02/16 14:01 Last Admin: 08/19/16 17:42 Dose: Not Given - Labs Labs: 08/19/16 12:45 08/19/16 12:45 PT 11.8 Seconds (9.9-11.8) 08/19/16 05:00 INR 1.09 (0.93-1.08) H 08/19/16 05:00 APTT 28.3 Seconds (23.7-30.8) 08/19/16 05:00 Assessment and Plan - Assessment and Plan (Free Text) Assessment: cardiac arrest . bowel ischemia. Plan: family was called no respose. as per resident perney. dr jhaveri was informed.
[2016-08-19] MEDS ORDERED: levETIRAcetam 1,000 MG in Sodium Chloride 0.9% 100 ML IV STA (18:06)
--- NOTE | 2016-08-19 18:23 | CARD ---
APPROVED REPORT EKG Measurement Heart [id number] <Conclusion> Undetermined rhythm Right bundle branch block T wave abnormality, consider inferolateral ischemia Abnormal ECG
--- NOTE | 2016-08-19 18:27 | CARD ---
APPROVED REPORT EKG Measurement Heart [id number] <Conclusion> Sinus rhythm with premature supraventricular complexes with occasional premature ventricular complexes Right bundle branch block Septal infarct, age undetermined T wave abnormality, consider lateral ischemia Abnormal ECG
--- NOTE | 2016-08-19 20:43 | CON ---
DATE: 08/19/2016 REQUESTING PHYSICIAN: Dr. Bakari Mccormack. EXECUTIVE HOUSEKEEPER: Dr. Satnam Hirsch. CHIEF COMPLAINT: Abdominal pain. 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 The patient presents to the Emergency Room early this morning with complaints of multiple hours of abdominal pain that is getting worse. Clinically, his findings are minimal, but his complaint keeps getting more and julia worse, and he does get reli ef 1 mg of Dilaudid. He describes the pain as being similar to that which he had in the last month w hen he had an infarcted right colon. PAST MEDICAL HISTORY: Includes 3 myocardial infarctions, a transaortic aortic valve replacement and a recent cardiac stent in 2016. Following his recent cardiac evaluation, he was found to have an eje ction fraction of approximately 20%. Clinically, he was living on the second floor of a building and had difficulty attempting more than half of the flight of stairs. After his brought him to the Emergency Room, he was found to have an elevated white count at 19. 4, normal electrolytes with an elevated creatinine of 0.7 and a hemoglobin just below 11. MEDICATIONS: He has been ____ the same medications for diabetes, cardiomyopathy and schizophrenia. He has been taking Plavix regularly as well as Wellbutrin and ____. IMAGING STUDIES: CAT scan done at ____ with oral contrast was not interpreted until 10:30 and the re port did not appear on the chart until 11:00. This outplacement consultant was able to see the CAT scan at 10:40 and recommended a nasogastric tube and appreciated pneumatosis intestinalis throughout the entire sma ll bowel and probably into the stomach wall was well. The liver has very significant portal vein gas and colon appears relatively normal without evidence of circulatory impairment. HOSPITAL COURSE TO THIS POINT: The patient was transferred from the Emergency Room while the CAT sca n was being read, and he arrived on the telemetry floor and remained there until around noontime when he developed a rapid heartbeat (V. tachycardia) and subsequent asystole arrest with PEA (pulseless e lectrical activity). He was resuscitated and intubated and then brought to the intensive care unit u nder the care of Dr. Chace Coleman. At the time of the intubation, it appears he aspirated when he vomited . The nasogastric tube was not inserted until after the arrest. IMPRESSION UPON CONSULTATION: 1. 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 2. Severe cardiomyopathy - ejection fraction 20%. 3. Insulin-dependent diabetes mellitus. 4. Schizophrenia. The patient is now in the intensive care unit on ____ pressors with Levophed and dopamine beginning, and barely has a blood pressure of 100 at this point. The prognosis is terminally grave, and this shetty s been discussed with the attending physician, Dr. Bakari Mccormack. The extent of the ____ and the angie bility to be able to tolerate any diet leads to an unsupportable decision for any surgical interventi on ____. Angiography was limited because of the diabetes and the renal insufficiency from chronic ca rdiovascular disease. With the inability to offer the patient any surgical intervention, discussion was held with the inten sivist, Dr. Chace Coleman, and supportive measures are to be considered as the patient's prognosis is grave and terminal. This dictation will be electronically signed without being read. This outplacement consultant will be glad to off er any assistance during this period of time to facilitate the patient's comfort in any way possible. Satnam Hirsch MD cc: [id number] TT: 08/19/2016 16:30:31 Confirmation # [id number] Dictation # [id number] mn
[2016-08-19 21:10] LABS: VENOUS BLOOD GAS BASE EXCESS -12.9 mmol/L (0.0-2.0); VENOUS BLOOD PH 7.15 (7.32-7.43)
--- NOTE | 2016-08-19 21:25 | CP.PCM.PCO ---
Subjective - Physician Review Events Since Last Encounter (Free Text): 08/19/16 21:17 Case discussed with the patient's (Ric), sister (Jeanette) and Brother in law at bedside. Ric who is the next of kin stated that Mr. Ramírez did not want to be on a ventilator and "life support" if he was going to have no quality of life. I discussed the options at this time of continuing full care including vasopressor and ventilator support and exploring all possible options within reason vs continuing vent/pressor support however avoiding resuscitation should he fail these measures or go into cardiac arrest again vs comfort care. Ric and Jeanette were both in agreement initially on comfort care however stated they were not ready to make that decision yet; in the interim they would like him to be a DNR/DNI until they are able to determine tomorrow whether they want to pursue comfort measures and withdraw ventilator/pressor support with the aims of making him comfortable and allowing him to pass peacefully. Also worth noting, I have reviewed the chart in it's entirety and in the ED Physicians note it states that the patient was not a candidate for the ICU this morning. This is incorrect, as I did in not implicitly or explicitly make a disposition in regards to the patient's ICU status unless and until his imaging was complete. The imaging was completed after my shift had ended and the daytime ICU team was not asked to evaluate the patient at that time.
[2016-08-19] MEDS ORDERED: levETIRAcetam 500 MG in Sodium Chloride 0.9% 100 ML IV SCH (22:00)
[2016-08-19] MEDS ORDERED: Meropenem 1g/NS 100mL IVPB 100 ML IVPB SCH (22:00)
[2016-08-19] MEDS ORDERED: TEMAZEPAM 15 MG PO SCH (22:00)
[2016-08-19 22:46] VITALS: RESP 30
[2016-08-19 22:47] VITALS: O2SAT 98
[2016-08-20 00:46] LABS: VENOUS BLOOD GAS BASE EXCESS -16.4 mmol/L (0.0-2.0)
[2016-08-20 00:49] LABS: VENOUS BLOOD PH 7.18 (7.32-7.43)
--- NOTE | 2016-08-20 00:51 | CP.PCM.PRO ---
Pronouncement of Note - Clinical Findings Physical Exam: No Response Verbal/Painful Stimuli, Absent Peripheral Pulses{ Carotid & Femoral}, Absent Heart & Breath Sounds, No Pupillary Light Reflex, Pupils Fixed & Dilated, Absence of Vital Signs - Pronouncement Time Time of Pronouncement of : 00:40 Additional Comments: Despite maximal vasopressor support patient eventually succumbed to his septic shock - Notifications Pronouncement Notifications: Family Notified, Atending Notified Customs Broker Notified: Yes - Autopsy Autopsy Requested: No [place]: [id number] Additional Comments: Notified by Nurse of patient's asystole reading on the monitor; family at bedside. Condolences offered. Attending Physician Dr. Mccormack notified as well.
[2016-08-20 01:58] VITALS: PULSE 104
[2016-08-20 02:00] VITALS: TEMP 100.6
[2016-08-20 02:01] VITALS: BP 47/20
--- NOTE | 2016-08-20 02:09 | CON ---
DATE: 08/19/2016 HISTORY OF PRESENT ILLNESS: This is a 60-year-old white male with a past medical history of coronary artery disease, diabetes, hypertension, chronic congestive heart failure, sleep apnea, dyslipidemia and schizophrenia who came to the hospital with abdominal pain and had vomited coffee ground, bloody vomitus and became unresponsive. The patient was intubated and on a ventilatory support and is havin g a lot of jerky movements, called to evaluate the patient. PAST MEDICAL HISTORY: As above. SOCIAL HISTORY: Does not smoke, does not drink. ALLERGIES: THE PATIENT IS ALLERGIC TO HALDOL AND OXYCODONE. REVIEW OF SYSTEMS: A 10-point review of system was . The patient is unresponsive, on a ventila tory support and having jerking movements. PHYSICAL EXAMINATION: The patient on a ventilatory support and family at bedside and the patient hav ing jerking movement and eyes rolled up and pupils reactive sluggishly. No spontaneous movement of t he extremities noted. SENSORY: Unable to follow any commands. Cerebellar gait was deferred. IMPRESSION: Encephalopathy, possibly sepsis and jerking movements, possibly a seizure. PLAN: We will start IV Keppra and continue present management. We will follow up. Prognosis is gua rded. Carl Estevez MD cc: [id number] TT: 08/20/2016 02:08:59 Confirmation # [id number] Dictation # [id number] claudia
[2016-08-20] MEDS ORDERED: levETIRAcetam 500 MG in Sodium Chloride 0.9% 100 ML IV SCH (06:00)
[2016-08-20] MEDS ORDERED: buPROPion SR 150 MG TABLET PO SCH (10:00)
== END 2016-08-20 00:40 | DRG 871 ==
LOC: ED 04:33 → ERH 07:29 → 2RSO 09:48 → CCU 12:11
PROVIDERS: ADMIT Family Medicine; ATTEND Family Medicine
PROC: 0BH17EZ Insertion of Endotracheal Airway into Trachea, Via Natural or Artificial Opening (ICD-10-PCS; principal; 2016-08-19)
PROC: 03HY32Z Insertion of Monitoring Device into Upper Artery, Percutaneous Approach (ICD-10-PCS; 2016-08-19)
PROC: 5A12012 Performance of Cardiac Output, Single, Manual (ICD-10-PCS; 2016-08-19)
PROC: B34JZZZ Ultrasonography of Left Upper Extremity Arteries (ICD-10-PCS; 2016-08-19)
DX: A41.9 Sepsis, unspecified organism (principal); J96.00 Acute respiratory failure, unspecified whether with hypoxia or hypercapnia; I46.9 Cardiac arrest, cause unspecified; R65.21 Severe sepsis with septic shock; J69.0 Pneumonitis due to inhalation of food and vomit; K65.0 Generalized (acute) peritonitis; G93.40 Encephalopathy, unspecified; K55.069 Acute infarction of intestine, part and extent unspecified; I47.2 Ventricular tachycardia; E87.2 Acidosis; N17.9 Acute kidney failure, unspecified; I42.9 Cardiomyopathy, unspecified; I11.0 Hypertensive heart disease with heart failure; I50.9 Heart failure, unspecified; E11.9 Type 2 diabetes mellitus without complications; E78.00 Pure hypercholesterolemia, unspecified; E78.5 Hyperlipidemia, unspecified; G47.33 Obstructive sleep apnea (adult) (pediatric); I25.10 Atherosclerotic heart disease of native coronary artery without angina pectoris; J44.9 Chronic obstructive pulmonary disease, unspecified; J45.909 Unspecified asthma, uncomplicated; F17.200 Nicotine dependence, unspecified, uncomplicated; F25.9 Schizoaffective disorder, unspecified; F31.9 Bipolar disorder, unspecified; Y95 Nosocomial condition; I34.1 Nonrheumatic mitral (valve) prolapse; Z66 Do not resuscitate; Z79.4 Long term (current) use of insulin; Z79.899 Other long term (current) drug therapy; Z82.49 Family history of ischemic heart disease and other diseases of the circulatory system; Z87.19 Personal history of other diseases of the digestive system; Z90.49 Acquired absence of other specified parts of digestive tract; Z95.2 Presence of prosthetic heart valve; Z95.5 Presence of coronary angioplasty implant and graft; Z88.5 Allergy status to narcotic agent; Z88.8 Allergy status to other drugs, medicaments and biological substances; Z87.892 Personal history of anaphylaxis; R40.2412 Glasgow coma scale score 13-15, at arrival to emergency department; I45.10 Unspecified right bundle-branch block